=== PATIENT | male | born 1960 ===

== ENCOUNTER 2017-02-28 09:01 | Inpatient (IN) | payer OTHER ==
[2017-02-28] MEDS ORDERED: Sodium Chloride 0.9% 100 ML IV STA (09:52)
--- NOTE | 2017-02-28 09:55 | ED PDOC ---
HPI: General Adult Time Seen by Provider: 02/28/17 09:45 Chief Complaint (Nursing): Abdominal Pain Chief Complaint (Provider): im weak and dizzy History Per: Patient History/Exam Limitations: no limitations Onset/Duration Of Symptoms: Days (5), Gradual Current Symptoms Are (Timing): Still Present Severity: Moderate Recently: Treated By A Physician Additional Complaint(s): 56yo male presents c/o feeling weak and generalized feeling of dizziness. Denies abdominal pain, rectal bleeding, diarrhea or vomiting. He notes abdominal distension, worsening, and bilateral lower extremity weakness. Past Medical History Reviewed: Historical Data, Nursing Documentation, Vital Signs Vital Signs: Last Vital Signs Temp 99.6 F 03/06/17 07:54 Pulse 99 H 03/06/17 07:54 Resp 18 03/06/17 07:54 BP 126/78 03/06/17 07:54 Pulse Ox 99 03/06/17 07:54 - Medical History PMH: Anemia, HTN Denies: Arthritis, Depression (denies), Chronic Kidney Disease Other PMH: cirrhosis - Surgical History Surgical History: Cholecystectomy - Family History Family History: States: Unknown Family Hx - Social History Current smoker - smoking cessation education provided: No - Home Medications Home Medications: Ambulatory Orders Medication Instructions Recorded Ferrous Sulfate [Feosol] 325 mg PO BID #60 tab 03/06/17 Furosemide [Lasix] 40 mg PO DAILY #14 tablet 03/06/17 Pantoprazole [Protonix EC Tab] 40 mg PO DAILY #30 ect 03/06/17 Spironolactone [Aldactone] 50 mg PO BID #30 tab 03/06/17 - Allergies Allergies/Adverse Reactions: Allergies Allergy/AdvReac Type Severity Reaction Status Date / Time No Known Allergies Allergy Verified 01/13/17 18:59 Review of Systems ROS Statement: Except As Marked, All Systems Reviewed And Found Negative Constitutional: Positive for: Weakness, Malaise. Negative for: Fever, Chills Cardiovascular: Negative for: Chest Pain, Palpitations Respiratory: Negative for: Cough, Shortness of Breath Gastrointestinal: Positive for: Abdominal Pain. Negative for: Nausea, Vomiting , Diarrhea, Hematochezia, Hematemesis, Rectal Pain Genitourinary Male: Negative for: Dysuria, Frequency Musculoskeletal: Positive for: Leg Pain. Negative for: Neck Pain, Shoulder Pain , Foot Pain Skin: Negative for: Rash, Lesions, Jaundice Neurological: Positive for: Weakness, Dizziness. Negative for: Confusion, Seizures, Headache Psych: Positive for: Anxiety. Negative for: Depression Physical Exam - Reviewed Nursing Documentation Reviewed: Yes Vital Signs Reviewed: Yes - Physical Exam Appears: Positive for: Non-toxic (chronically ill appearing) Head Exam: Positive for: ATRAUMATIC, NORMAL INSPECTION, NORMOCEPHALIC Skin: Positive for: Normal Color, Warm, DRY Eye Exam: Positive for: EOMI, Normal appearance, PERRL ENT: Positive for: Normal ENT Inspection Neck: Positive for: Normal, Painless ROM Cardiovascular/Chest: Positive for: Regular Rate, Rhythm Respiratory: Positive for: CNT, Normal Breath Sounds Gastrointestinal/Abdominal: Positive for: Soft, Tenderness (mild), Distended, Asicites Back: Positive for: Normal Inspection Extremity: Positive for: Normal ROM, Swelling (b/l LE) Neurologic/Psych: Positive for: Alert, Oriented. Negative for: Motor/Sensory Deficits - Laboratory Results Result Diagrams: 03/06/17 05:30 03/06/17 05:30 - ECG O2 Sat by Pulse Oximetry: 100 Medical Decision Making Medical Decision Making: labs reviewed reveal anemia Hgb 7.7 Will likely need paracentesis for significant ascites/ Admitted medicine. Disposition - Clinical Impression Clinical Impression: Alcoholic cirrhosis of liver with ascites, Anemia - Patient ED Disposition Is Patient to be Admitted: Yes Counseled Patient/Family Regarding: Studies Performed, Diagnosis, Need For Followup - Disposition Disposition Time: 13:00 Condition: FAIR - Pt Status Changed To: Hospital Disposition Of: Observation - POA Present On Arrival: None
[2017-02-28 10:34] LABS: BASO # 0.1 K/uL (0.0-0.2); BASO % 0.4 % (0.0-2.0); EOS % 0.3 % (0.0-4.0); LYMPH # 0.7 K/uL (1.0-4.3); LYMPH % 5.3 % (20.0-40.0); MEAN CELL VOLUME 70.9 fl (80.0-94.0); MEAN CORPUSCULAR HEMOGLOBIN 20.8 pg (27.0-31.0); MEAN CORPUSCULAR HGB CONC 29.3 g/dL (33.0-37.0); MONO # 1.4 K/uL (0.0-0.8); MONO % 10.2 % (0.0-10.0); NEUT # 11.8 K/uL (1.8-7.0); NEUT % 83.8 % (50.0-75.0); NRBC % 0.2 % (0.0-0.0); PLATELET COUNT 442 K/uL (130-400); RED CELL DISTRIBUTION WIDTH 23.2 % (11.5-14.5); WHITE BLOOD COUNT 14.1 K/uL (4.8-10.8)
[2017-02-28 10:36] LABS: RBC URINE 1 /hpf (0-3); URINE BILIRUBIN NEGATIVE (NEGATIVE); URINE BLOOD NEGATIVE (NEGATIVE); URINE COLOR YELLOW (YELLOW); URINE GLUCOSE (UA) NEG (Normal); URINE KETONE NEGATIVE (NEGATIVE); URINE LEUKOCYTE ESTERASE NEG Leu/uL (Negative); URINE PROTEIN NEGATIVE (NEGATIVE); URINE UROBILINOGEN 0.2-1.0 mg/dL (0.2-1.0); WBC URINE 1 /hpf (0-5)
[2017-02-28 10:47] LABS: PARTIAL THROMBOPLASTIN TIME 27.3 SECONDS (23.3-32.5)
[2017-02-28 10:49] LABS: ALB/GLOB RATIO 0.7 (1.0-2.1); ALCOHOL SERUM < 10 mg/dl (0-10); ALKALINE PHOSPHATASE 132 U/L (38-126); ALT/SGPT 63 U/L (21-72); AST/SGOT 129 U/L (17-59); BILIRUBIN,TOTAL 1.4 mg/dl (0.2-1.3); BLOOD UREA NITROGEN 34 mg/dl (9-20); CALCIUM 8.3 mg/dL (8.4-10.2); CARBON DIOXIDE 20 mmol/L (22-30); CHLORIDE 95 mmol/L (98-107); GFR AFRICAN-AMERICAN > 60; GLUCOSE,RANDOM 161 mg/dL (75-110); POTASSIUM 4.2 MMOL/L (3.6-5.0); SODIUM 129 mmol/l (132-148); TOTAL PROTEIN 6.4 G/DL (6.3-8.2)
[2017-02-28 10:56] LABS: LIPASE 2250 U/L (23-300)
[2017-02-28 11:07] LABS: HEMATOCRIT 26.3 % (35.0-51.0)
[2017-02-28 11:13] LABS: NEUTROPHIL 86 % (42-75); TOTAL CELLS COUNTED 100
[2017-02-28 11:21] LABS: LARGE PLATELETS PRESENT
--- NOTE | 2017-02-28 14:24 | CARD ---
APPROVED REPORT EKG Measurement Heart [id number] <Conclusion> Normal sinus rhythm Prolonged QT Abnormal ECG
--- NOTE | 2017-02-28 17:30 | CP.PCM.CON ---
History of Present Illness - History of Present Illness History of Present Illness: 56 yo male with h/o heavy alcohol use admitted with abddominal swelling. admitted one month ago and then had minor acites Review of Systems - Constitutional Constitutional: absent: Chills - EENT Eyes: absent: Blurred Vision - Cardiovascular Cardiovascular: absent: Chest Pain - Respiratory Respiratory: absent: Cough - Gastrointestinal Gastrointestinal: As Per HPI Past Patient History - Infectious Disease Hx of Infectious Diseases: None - Past Medical History & Family History Past Medical History?: Yes - Past Social History Smoking Status: Former Smoker - CARDIAC Hx Cardiac Disorders: Yes - PULMONARY Hx Respiratory Disorders: No - NEUROLOGICAL Hx Neurological Disorder: No - HEENT Hx HEENT Problems: No - RENAL Hx Chronic Kidney Disease: No - ENDOCRINE/METABOLIC Hx Endocrine Disorders: Yes - HEMATOLOGICAL/ONCOLOGICAL Hx Anemia: Yes - INTEGUMENTARY Hx Dermatological Problems: No - MUSCULOSKELETAL/RHEUMATOLOGICAL Hx Arthritis: No - GASTROINTESTINAL Hx Gastrointestinal Disorders: No - GENITOURINARY/GYNECOLOGICAL Hx Genitourinary Disorders: No - PSYCHIATRIC Hx Depression: No (denies) - SURGICAL HISTORY Hx Cholecystectomy: Yes - ANESTHESIA Hx Anesthesia: Yes Hx Anesthesia Reactions: No Meds Allergies/Adverse Reactions: Allergies Allergy/AdvReac Type Severity Reaction Status Date / Time No Known Allergies Allergy Verified 01/13/17 18:59 - Medications Medications: Current Medications Furosemide (Lasix) 40 mg IV DAILY [facility] Ceftriaxone Sodium 1 gm/ (Sodium Chloride) 100 mls @ 100 mls/hr IVPB DAILY [facility] Spironolactone (Aldactone) 50 mg PO BID [facility] Physical Exam - Head Exam Head Exam: NORMAL INSPECTION - Eye Exam Pupil Exam: PERRL - ENT Exam ENT Exam: Mucous Membranes Moist - Neck Exam Neck exam: Positive for: Normal Inspection - Respiratory Exam Respiratory Exam: NORMAL BREATHING PATTERN - Cardiovascular Exam Cardiovascular Exam: REGULAR RHYTHM, +S1, +S2 - GI/Abdominal Exam GI & Abdominal Exam: Firm, Normal Bowel Sounds Results - Vital Signs Recent Vital Signs: Last Vital Signs Temp 98.2 F 02/28/17 15:38 Pulse 89 02/28/17 16:23 Resp 20 02/28/17 16:23 BP 127/84 02/28/17 16:23 Pulse Ox 100 02/28/17 16:23 - Labs Result Diagrams: 02/28/17 10:15 02/28/17 10:15 Assessment & Plan (1) Cirrhosis Assessment and Plan: Severe ascites in patient known to be heavy alcohol user. Rocephin started for possible SBP. Should have diagnostic and therapeutic tap. Pantoprazole daily. Diuretics started. Upper endoscopy Friday Status: Acute
[2017-03-01 12:08] LABS: HEMATOCRIT 30.9 % (35.0-51.0); MEAN CELL VOLUME 71.8 fl (80.0-94.0); MEAN CORPUSCULAR HEMOGLOBIN 22.4 pg (27.0-31.0); MEAN CORPUSCULAR HGB CONC 31.2 g/dL (33.0-37.0); RED CELL DISTRIBUTION WIDTH 22.8 % (11.5-14.5); WHITE BLOOD COUNT 15.1 K/uL (4.8-10.8)
--- NOTE | 2017-03-01 19:36 | CP.PCM.HP ---
History of Present Illness - History of Present Illness History of Present Illness: 56 yold male CC increased weakness , dizziness, abdominal distention , worsening leg edema and L/E weakness. Hx of Liver Cirrhosis 2nd to ETOH abuse, denies hematemesis, melena , abdominal pain , N/V Present on Admission - Present on Admission Any Indicators Present on Admission: No Review of Systems - Constitutional Constitutional: Weakness - EENT Eyes: Other (negt) Ears: Other (neg) Nose/Mouth/Throat: Other (neg) - Cardiovascular Cardiovascular: Other (neg) - Respiratory Respiratory: Other (neg) - Gastrointestinal Additional comments: abdominal distention - Genitourinary Genitourinary: Other (neg) - Musculoskeletal Musculoskeletal: Other (neg) - Integumentary Integumentary: Other (neg) - Neurological Neurological: Dizziness, Weakness - Psychiatric Psychiatric: Anxiety - Endocrine Endocrine: Other (neg) - Hematologic/Lymphatic Hematologic: Other (neg) Past Patient History - Infectious Disease Hx of Infectious Diseases: None - Past Medical History & Family History Past Medical History?: Yes - Past Social History Smoking Status: Former Smoker Alcohol: Other (Hx ETOH abuse) Drugs: Denies - CARDIAC Hx Cardiac Disorders: Yes Hx Hypertension: Yes - PULMONARY Hx Respiratory Disorders: No - NEUROLOGICAL Hx Neurological Disorder: No - HEENT Hx HEENT Problems: No - RENAL Hx Chronic Kidney Disease: No - ENDOCRINE/METABOLIC Hx Endocrine Disorders: Yes - HEMATOLOGICAL/ONCOLOGICAL Hx Anemia: Yes Hx Cirrhosis: Yes - INTEGUMENTARY Hx Dermatological Problems: No - MUSCULOSKELETAL/RHEUMATOLOGICAL Hx Arthritis: No Hx Falls: No - GASTROINTESTINAL Hx Gastrointestinal Disorders: No - GENITOURINARY/GYNECOLOGICAL Hx Genitourinary Disorders: No - PSYCHIATRIC Hx Depression: No (denies) Hx Substance Use: No - SURGICAL HISTORY Hx Cholecystectomy: Yes - ANESTHESIA Hx Anesthesia: Yes Hx Anesthesia Reactions: No Meds Allergies/Adverse Reactions: Allergies Allergy/AdvReac Type Severity Reaction Status Date / Time No Known Allergies Allergy Verified 01/13/17 18:59 Physical Exam - Constitutional Appears: Chronically Ill - Head Exam Head Exam: NORMAL INSPECTION - Eye Exam Eye Exam: PERRL - ENT Exam ENT Exam: Normal Exam - Neck Exam Neck exam: Positive for: Normal Inspection - Respiratory Exam Respiratory Exam: Decreased Breath Sounds (at bases) - Cardiovascular Exam Cardiovascular Exam: REGULAR RHYTHM - GI/Abdominal Exam GI & Abdominal Exam: Distended (ascites) - Extremities Exam Extremities exam: Positive for: pedal edema (legs , pedal edema) - Back Exam Back exam: NORMAL INSPECTION - Neurological Exam Neurological exam: Alert, Oriented x3 Additional comments: generalized weakness , no focal motor/sensory deficit - Psychiatric Exam Psychiatric exam: Anxious - Skin Skin Exam: Normal Color, Warm Results - Vital Signs Recent Vital Signs: Last Vital Signs Temp 98 F 03/01/17 17:16 Pulse 114 H 03/01/17 17:16 Resp 20 03/01/17 17:16 BP 138/85 03/01/17 17:16 Pulse Ox 99 03/01/17 17:16 - Labs Result Diagrams: 03/02/17 06:00 03/02/17 06:00 Labs: Laboratory Results - last 24 hr 03/01/17 12:00 WBC 15.1 H RBC 4.30 L Hgb 9.6 L Hct 30.9 L MCV 71.8 L MCH 22.4 L MCHC 31.2 L RDW 22.8 H Plt Count 395 Assessment & Plan (1) Alcoholic cirrhosis of liver with ascites Status: Acute (2) Anemia Status: Acute (3) Hyponatremia Status: Acute - Assessment and Plan (Free Text) Plan: Hgb 9.6 after 2 U PRBC transfusion , continue Rocephin Lasis, Aldactone , Protonix , f/i Hgb , Na , GI consult appreciated , f/u IR consult for Paracentesis
[2017-03-02 08:00] LABS: ALB/GLOB RATIO 0.7 (1.0-2.1); ALKALINE PHOSPHATASE 130 U/L (38-126); ALT/SGPT 57 U/L (21-72); AST/SGOT 109 U/L (17-59); BILIRUBIN,TOTAL 1.5 mg/dl (0.2-1.3); BLOOD UREA NITROGEN 21 mg/dl (9-20); CALCIUM 8.1 mg/dL (8.4-10.2); CARBON DIOXIDE 22 mmol/L (22-30); CHLORIDE 98 mmol/L (98-107); GFR AFRICAN-AMERICAN > 60; GLUCOSE,RANDOM 121 mg/dL (75-110); POTASSIUM 3.8 MMOL/L (3.6-5.0); SODIUM 134 mmol/l (132-148); TOTAL PROTEIN 6.4 G/DL (6.3-8.2)
[2017-03-02 08:01] LABS: HEMATOCRIT 33.2 % (35.0-51.0); MEAN CELL VOLUME 74.5 fl (80.0-94.0); MEAN CORPUSCULAR HEMOGLOBIN 21.6 pg (27.0-31.0); MEAN CORPUSCULAR HGB CONC 28.9 g/dL (33.0-37.0); WHITE BLOOD COUNT 14.9 K/uL (4.8-10.8)
[2017-03-02 08:15] LABS: LIPASE 2533 U/L (23-300)
--- NOTE | 2017-03-02 15:12 | CP.PCM.PN ---
Subjective - Date & Time of Evaluation Date of Evaluation: 03/02/17 Time of Evaluation: 14:50 - Subjective Subjective: F/U Liver Cirrhosis. Pt c/o of generalized weakness, no c/o of dizziness, no abdominal pain. Objective - Vital Signs/Intake and Output Vital Signs (last 24 hours): Temp Pulse Resp BP Pulse Ox 97.8 F 110 H 20 154/95 H 100 03/02/17 07:50 03/02/17 07:50 03/02/17 07:50 03/02/17 09:28 03/02/17 07:50 - Medications Medications: Current Medications Furosemide (Lasix) 40 mg IV DAILY [facility] Last Admin: 03/02/17 09:28 Dose: 40 mg Ceftriaxone Sodium 1 gm/ (Sodium Chloride) 100 mls @ 100 mls/hr IVPB DAILY [facility] Last Admin: 03/02/17 12:59 Dose: 100 mls/hr Pantoprazole Sodium (Protonix Inj) 40 mg IVP DAILY [facility] Last Admin: 03/02/17 09:28 Dose: 40 mg Spironolactone (Aldactone) 50 mg PO BID [facility] Last Admin: 03/02/17 09:28 Dose: 50 mg - Labs Labs: 03/02/17 06:00 03/02/17 06:00 PT 12.7 SECONDS (9.6-11.2) H 03/02/17 06:00 INR 1.22 (0.92-1.08) H 03/02/17 06:00 APTT 27.3 SECONDS (23.3-32.5) 02/28/17 10:15 - Constitutional Appears: No Acute Distress - Head Exam Head Exam: NORMAL INSPECTION - Eye Exam Eye Exam: PERRL - ENT Exam ENT Exam: Normal Exam - Neck Exam Neck Exam: Normal Inspection - Respiratory Exam Respiratory Exam: Decreased Breath Sounds - Cardiovascular Exam Cardiovascular Exam: REGULAR RHYTHM - GI/Abdominal Exam GI & Abdominal Exam: Distended (ascites) - Extremities Exam Additional comments: B/L L/E edema, 4+ pitting - Back Exam Back Exam: NORMAL INSPECTION - Neurological Exam Neurological Exam: Alert, Oriented x3 Additional comments: Generalized weakness, no focal motor/sensory deficit. - Psychiatric Exam Psychiatric exam: Anxious - Skin Skin Exam: Normal Color, Warm Assessment and Plan (1) Alcoholic cirrhosis of liver with ascites Status: Acute (2) Anemia Status: Acute (3) Hyponatremia Status: Acute - Assessment and Plan (Free Text) Plan: Continue Aldactone, Ceftriaxone, Lasix and rest of Tx, f/u IR for Paracentesis tomorrow.
[2017-03-03] MEDS ORDERED: Pneumococcal 23-Valent Vaccine IM ONE (11:18)
[2017-03-03 12:23] LABS: BODY FLUID TYPE PERITONEAL/ASCITES
[2017-03-03 13:10] LABS: LDH,BODY FLUID 270 IU (NONE ESTABLISHED)
[2017-03-03 14:45] LABS: BF GROSS APPEARANCE CLEAR (CLEAR)
[2017-03-03 16:09] LABS: HEMATOCRIT 31.2 % (35.0-51.0); MEAN CELL VOLUME 73.7 fl (80.0-94.0); MEAN CORPUSCULAR HEMOGLOBIN 21.8 pg (27.0-31.0); MEAN CORPUSCULAR HGB CONC 29.6 g/dL (33.0-37.0); RED CELL DISTRIBUTION WIDTH 22.8 % (11.5-14.5); WHITE BLOOD COUNT 14.3 K/uL (4.8-10.8)
[2017-03-03 16:27] LABS: ALB/GLOB RATIO 0.7 (1.0-2.1); ALKALINE PHOSPHATASE 154 U/L (38-126); ALT/SGPT 58 U/L (21-72); AMYLASE 585 U/L (30-110); AST/SGOT 121 U/L (17-59); BILIRUBIN,TOTAL 0.8 mg/dl (0.2-1.3); BLOOD UREA NITROGEN 18 mg/dl (9-20); CALCIUM 7.9 mg/dL (8.4-10.2); CARBON DIOXIDE 24 mmol/L (22-30); CHLORIDE 98 mmol/L (98-107); GFR AFRICAN-AMERICAN > 60; GLUCOSE,RANDOM 153 mg/dL (75-110); POTASSIUM 3.8 MMOL/L (3.6-5.0); SODIUM 134 mmol/l (132-148); TOTAL PROTEIN 6.2 G/DL (6.3-8.2)
[2017-03-03 16:35] LABS: LIPASE 3538 U/L (23-300)
--- NOTE | 2017-03-03 16:54 | CP.PCM.PN ---
Subjective - Date & Time of Evaluation Date of Evaluation: 03/03/17 Time of Evaluation: 13:20 - Subjective Subjective: F/U Liver Cirrhosis. Pt had Paracentesis done today, feels better with less pressure in abdomen. Objective - Vital Signs/Intake and Output Vital Signs (last 24 hours): Temp Pulse Resp BP Pulse Ox 99 F 109 H 20 125/83 97 03/03/17 12:06 03/03/17 12:06 03/03/17 12:06 03/03/17 12:06 03/03/17 12:06 - Medications Medications: Current Medications Furosemide (Lasix) 40 mg IV DAILY [facility] Last Admin: 03/03/17 09:04 Dose: 40 mg Ceftriaxone Sodium 1 gm/ (Sodium Chloride) 100 mls @ 100 mls/hr IVPB DAILY [facility] Last Admin: 03/03/17 09:05 Dose: 100 mls/hr Pantoprazole Sodium (Protonix Inj) 40 mg IVP DAILY [facility] Last Admin: 03/03/17 09:04 Dose: 40 mg Spironolactone (Aldactone) 50 mg PO BID [facility] Last Admin: 03/03/17 09:05 Dose: 50 mg - Labs Labs: 03/03/17 15:30 03/03/17 15:45 PT 12.7 SECONDS (9.6-11.2) H 03/02/17 06:00 INR 1.22 (0.92-1.08) H 03/02/17 06:00 APTT 27.3 SECONDS (23.3-32.5) 02/28/17 10:15 - Constitutional Appears: No Acute Distress - Head Exam Head Exam: NORMAL INSPECTION - Eye Exam Eye Exam: PERRL - ENT Exam ENT Exam: Normal Oropharynx - Neck Exam Neck Exam: Normal Inspection - Respiratory Exam Respiratory Exam: Decreased Breath Sounds - Cardiovascular Exam Cardiovascular Exam: REGULAR RHYTHM - GI/Abdominal Exam GI & Abdominal Exam: Distended (less), Normal Bowel Sounds Additional comments: Small dressing R side of abdomen - Extremities Exam Additional comments: Edema L/E 4+ pitting - Neurological Exam Neurological Exam: Alert, Oriented x3 Additional comments: Generalized weakness, no focal motor/sensory deficit. - Psychiatric Exam Psychiatric exam: Anxious - Skin Skin Exam: Warm Assessment and Plan (1) Alcoholic cirrhosis of liver with ascites Status: Acute (2) Anemia Status: Acute (3) Hyponatremia Status: Resolved - Assessment and Plan (Free Text) Plan: Continue Ceftriaxone, Lasix, Aldactone and rest of Tx.
--- NOTE | 2017-03-04 09:17 | PQF GENQUE ---
This form is a permanent part of the medical record 03/04/17 Dr. Qiana Phillip, Would you please clarify if there is an associated diagnosis or not to go along with the following lab findings: Amylase 585, Lipase 2250-> 3538. Admitted with alcoholic cirrhosis with ascites. Clarification of your documentation is requested to better reflect the severity of illness and intensity of treatment of your patient. PHYSICIAN'S RESPONSE Based on your medical judgment of the clinical indicators outlined above please clarify the following: [] Practitioner response [] If unable to determine, please check the box, sign and date. Present On Admission (POA) Indicator: [] Present at the time of admission [] Not present at the time of admission [] Clinically Undetermined In responding to this query, please exercise your independent professional judgment. The fact that a question is asked does not imply that any particular answer is desired or expected. Thank you for your clarification on this documentation. If you have any questions please call:[phone] * Thank you, Kelley Haynes RN CD[facility]
--- NOTE | 2017-03-04 09:27 | PQF ANEMIA ---
This form is a permanent part of the medical record 03/04/17 Dr. Qiana Phillip, Please clarify the type of anemia if known. Admitted with Alcoholic cirrhosis of the liver with ascites. H&H 7.7/26.3, MCV 70.9, MCH 20.8 and transfused 2 units of PRBC's Clarification of your documentation is requested to better reflect the severity of illness and intensity of treatment of your patient. Indicators present [x] Anemia [] H&H 7.7/26.3 [] Hypotension [] GI Bleed [x] Transfusion(s): PRBC [] Acute bleed other sites [] Tachycardia [] Surgical Procedure Blood Loss (expected not a complication) Other:[] Location in the medical record that reflects the above clinical findings: [x] H& P Treatment Provided: [x] Transfusion PRBC PHYSICIAN'S RESPONSE Based on your medical judgment of the clinical indicators outlined above, are you treating this patient for a known or suspected: [] Acute blood loss anemia [] Chronic blood loss anemia [] Acute on Chronic blood loss anemia [] Deficiency anemia please specify type [] Microcytic anemia [] Anemia due to chemotherapy or radiation therapy [] Anemia of Chronic Disease, please specify: [] [] Other, please indicate type of anemia []____ [] If Unable to Determine, please check the box, sign and date. Present On Admission (POA) Indicator: [] Present at the time of admission [] Not present at the time of admission [] Clinically Undetermined In responding to this query, please exercise your independent professional judgment. The fact that a question is asked does not imply that any particular answer is desired or expected. Thank you for your clarification on this documentation. If you have any questions please call:[phone] * Thank you, Kelley Haynes RN CD[facility]
[2017-03-04] MEDS: Albumin Human 25% (12.5 gm/50 ml) IV SCH ×2 (11:02→17:14)
--- NOTE | 2017-03-04 12:42 | PCM.SURG1 ---
Surgeon's Initial Post Op Note - Surgeon's Notes Surgeon: Yohannes Production Clerk: None Type of Anesthesia: Local Pre-Operative Diagnosis: Ascites. Operative Findings: Ascites. Post-Operative Diagnosis: Ascites. Operation Performed: Paracentesis Specimen/Specimens Removed: Approx 9L of clear fluid aspirated. Estimated Blood Loss: EBL {In ML}: 1 Date of Surgery/Procedure: 03/03/17 Time of Surgery/Procedure: 11:40
--- NOTE | 2017-03-04 12:48 | US ---
Ultrasound guided paracentesis. Clinical History: Ascites with abdominal pain and distension. Technique: The relative risks and indications for the procedure were explained to the patient and informed written consent obtained. Sonography of the abdomen was performed in a supine position. This revealed a large amount of non-loculated ascites, greatest in the right lower quadrant. A puncture site was selected and the area was prepped and draped in the usual sterile fashion. 1% lidocaine was used to anesthetize the skin and soft tissues. A 5 Welsh paracentesis catheter was trocared into the right lower quadrant under real time ultrasound guidance. A permanent image was stored. Approximately 9000 cc of clear pale yellow colored fluid aspirated. Impression: Ultrasound-guided paracentesis in the right lower quadrant. Approximately 9000 cc of clear pale yellow colored fluid was aspirated.
--- NOTE | 2017-03-04 17:07 | CP.PCM.PN ---
Subjective - Date & Time of Evaluation Date of Evaluation: 03/04/17 Time of Evaluation: 10:00 - Subjective Subjective: F/U Liver Cirrhosis feels better after Paracentesis, complains of generalized weakness and leg edema Objective - Vital Signs/Intake and Output Vital Signs (last 24 hours): Temp Pulse Resp BP Pulse Ox 99.9 F H 70 20 97/62 L 98 03/04/17 08:36 03/04/17 08:36 03/04/17 08:36 03/04/17 11:04 03/04/17 08:36 - Medications Medications: Current Medications Acetaminophen (Tylenol 325mg Tab) 650 mg PO Q4 PRN PRN Reason: Pain, moderate (4-7) Last Admin: 03/04/17 11:03 Dose: 650 mg Albumin Human (Albumin Human 25% (12.5 Gm/50 Ml)) 12.5 gm IV Q8 [facility] Last Admin: 03/04/17 11:02 Dose: 12.5 gm Furosemide (Lasix) 40 mg IV DAILY [facility] Last Admin: 03/04/17 11:04 Dose: Not Given Ceftriaxone Sodium 1 gm/ (Sodium Chloride) 100 mls @ 100 mls/hr IVPB DAILY [facility] Last Admin: 03/04/17 12:08 Dose: 100 mls/hr Pantoprazole Sodium (Protonix Inj) 40 mg IVP DAILY [facility] Last Admin: 03/04/17 11:03 Dose: 40 mg Spironolactone (Aldactone) 50 mg PO BID [facility] Last Admin: 03/04/17 11:04 Dose: Not Given - Labs Labs: 03/03/17 15:30 03/03/17 15:45 PT 12.7 SECONDS (9.6-11.2) H 03/02/17 06:00 INR 1.22 (0.92-1.08) H 03/02/17 06:00 APTT 27.3 SECONDS (23.3-32.5) 02/28/17 10:15 - Constitutional Appears: No Acute Distress - Head Exam Head Exam: NORMAL INSPECTION - Eye Exam Eye Exam: PERRL - ENT Exam ENT Exam: Normal Exam - Neck Exam Neck Exam: Normal Inspection - Respiratory Exam Respiratory Exam: Decreased Breath Sounds - Cardiovascular Exam Cardiovascular Exam: REGULAR RHYTHM - GI/Abdominal Exam GI & Abdominal Exam: Distended (less distended , decreased ascites), Normal Bowel Sounds Additional comments: Small dressing R side of abdomen. - Extremities Exam Additional comments: Edema L/E 4+ pitting - Neurological Exam Neurological Exam: Alert, Oriented x3 Additional comments: Generalized weakness, no focal motor/sensory deficit. - Psychiatric Exam Psychiatric exam: Anxious - Skin Skin Exam: Warm Assessment and Plan (1) Alcoholic cirrhosis of liver with ascites Status: Acute (2) Anemia Status: Acute (3) Hyponatremia Status: Resolved - Assessment and Plan (Free Text) Plan: continue Lasix , Spirolactone, Albumin,Protonix , PT eval
[2017-03-05] MEDS: Albumin Human 25% (12.5 gm/50 ml) IV SCH ×2 (00:42→09:00)
[2017-03-05 08:18] LABS: HEMATOCRIT 30.6 % (35.0-51.0); MEAN CELL VOLUME 73.8 fl (80.0-94.0); MEAN CORPUSCULAR HEMOGLOBIN 22.1 pg (27.0-31.0); RED CELL DISTRIBUTION WIDTH 23.3 % (11.5-14.5); WHITE BLOOD COUNT 11.9 K/uL (4.8-10.8)
[2017-03-05 08:22] LABS: AMYLASE 580 U/L (30-110); BLOOD UREA NITROGEN 16 mg/dl (9-20); CARBON DIOXIDE 22 mmol/L (22-30); CHLORIDE 100 mmol/L (98-107); GFR AFRICAN-AMERICAN > 60; GLUCOSE,RANDOM 111 mg/dL (75-110); POTASSIUM 4.2 MMOL/L (3.6-5.0); SODIUM 134 mmol/l (132-148)
[2017-03-05 08:58] LABS: LIPASE 2939 U/L (23-300)
--- NOTE | 2017-03-05 14:19 | CP.PCM.PN ---
Subjective - Date & Time of Evaluation Date of Evaluation: 03/05/17 Time of Evaluation: 09:40 - Subjective Subjective: F/U Liver Cirrhosis. Pt feeling better, less abdominal discomfort, c/o of leg edema. Objective - Vital Signs/Intake and Output Vital Signs (last 24 hours): Temp Pulse Resp BP Pulse Ox 98.4 F 90 20 130/87 100 03/05/17 08:15 03/05/17 08:15 03/05/17 08:15 03/05/17 09:33 03/05/17 08:15 - Medications Medications: Current Medications Acetaminophen (Tylenol 325mg Tab) 650 mg PO Q4 PRN PRN Reason: Pain, moderate (4-7) Last Admin: 03/04/17 11:03 Dose: 650 mg Ferrous Sulfate (Feosol) 325 mg PO BID [facility] Furosemide (Lasix) 40 mg IV DAILY [facility] Last Admin: 03/05/17 09:33 Dose: 40 mg Ceftriaxone Sodium 1 gm/ (Sodium Chloride) 100 mls @ 100 mls/hr IVPB DAILY [facility] Last Admin: 03/05/17 09:41 Dose: 100 mls/hr Pantoprazole Sodium (Protonix Inj) 40 mg IVP DAILY [facility] Last Admin: 03/05/17 09:41 Dose: 40 mg Spironolactone (Aldactone) 50 mg PO BID [facility] Last Admin: 03/05/17 09:45 Dose: 50 mg - Labs Labs: 03/05/17 05:50 03/05/17 05:50 PT 12.7 SECONDS (9.6-11.2) H 03/02/17 06:00 INR 1.22 (0.92-1.08) H 03/02/17 06:00 APTT 27.3 SECONDS (23.3-32.5) 02/28/17 10:15 - Constitutional Appears: No Acute Distress - Head Exam Head Exam: NORMAL INSPECTION - Eye Exam Eye Exam: PERRL - ENT Exam ENT Exam: Normal Oropharynx - Neck Exam Neck Exam: Normal Inspection - Respiratory Exam Respiratory Exam: Decreased Breath Sounds (at bases) - Cardiovascular Exam Cardiovascular Exam: REGULAR RHYTHM - GI/Abdominal Exam GI & Abdominal Exam: Distended (less diatended with ascites.), Soft, Hypoactive Bowel Sounds - Extremities Exam Additional comments: Edema L/E 4+ pitting - Neurological Exam Neurological Exam: Alert, Oriented x3 Additional comments: Generalized weakness, no focal motor/sensory deficit. - Psychiatric Exam Psychiatric exam: Anxious - Skin Skin Exam: Warm Assessment and Plan (1) Alcoholic cirrhosis of liver with ascites Status: Acute (2) Anemia Status: Acute (3) Hyponatremia Status: Resolved - Assessment and Plan (Free Text) Plan: Pt D/C by PT, able to ambulate independently, SS working for discharge planing.
[2017-03-05 16:30] LABS: IRON 21 ug/dL (49-181)
[2017-03-06 07:39] LABS: HEMATOCRIT 30.7 % (35.0-51.0); MEAN CORPUSCULAR HEMOGLOBIN 21.9 pg (27.0-31.0); MEAN CORPUSCULAR HGB CONC 29.5 g/dL (33.0-37.0); RED CELL DISTRIBUTION WIDTH 23.1 % (11.5-14.5); WHITE BLOOD COUNT 11.3 K/uL (4.8-10.8)
[2017-03-06 07:48] LABS: AMYLASE 542 U/L (30-110); BLOOD UREA NITROGEN 13 mg/dl (9-20); CALCIUM 8.3 mg/dL (8.4-10.2); CARBON DIOXIDE 23 mmol/L (22-30); CHLORIDE 99 mmol/L (98-107); GFR AFRICAN-AMERICAN > 60; GLUCOSE,RANDOM 119 mg/dL (75-110); POTASSIUM 3.9 MMOL/L (3.6-5.0); SODIUM 135 mmol/l (132-148)
[2017-03-06 07:55] VITALS: BP 126/78; PULSE 99; RESP 18; TEMP 99.6
[2017-03-06 07:57] LABS: LIPASE 2560 U/L (23-300)
[2017-03-06] MEDS ORDERED: Pantoprazole 40 mg EC Tab PO SCH (09:00)
--- NOTE | 2017-03-06 14:42 | CP.PCM.PN ---
Subjective - Date & Time of Evaluation Date of Evaluation: 03/06/17 Time of Evaluation: 12:00 - Subjective Subjective: F/U Liver Cirrhosis. Pt with no specific c/o, generalized weakness improved. Objective - Vital Signs/Intake and Output Vital Signs (last 24 hours): Temp Pulse Resp BP Pulse Ox 99.6 F 99 H 18 126/78 99 03/06/17 07:54 03/06/17 07:54 03/06/17 07:54 03/06/17 07:54 03/06/17 07:54 - Medications Medications: Current Medications Acetaminophen (Tylenol 325mg Tab) 650 mg PO Q4 PRN PRN Reason: Pain, moderate (4-7) Last Admin: 03/04/17 11:03 Dose: 650 mg Ferrous Sulfate (Feosol) 325 mg PO BID [facility] Last Admin: 03/06/17 09:34 Dose: 325 mg Ceftriaxone Sodium 1 gm/ (Sodium Chloride) 100 mls @ 100 mls/hr IVPB DAILY [facility] Last Admin: 03/06/17 09:35 Dose: 100 mls/hr Pantoprazole Sodium (Protonix Ec Tab) 40 mg PO DAILY [facility] Last Admin: 03/06/17 09:34 Dose: 40 mg Spironolactone (Aldactone) 50 mg PO BID [facility] Last Admin: 03/06/17 09:34 Dose: 50 mg - Labs Labs: 03/06/17 05:30 03/06/17 05:30 PT 12.7 SECONDS (9.6-11.2) H 03/02/17 06:00 INR 1.22 (0.92-1.08) H 03/02/17 06:00 APTT 27.3 SECONDS (23.3-32.5) 02/28/17 10:15 - Constitutional Appears: No Acute Distress - Head Exam Head Exam: NORMAL INSPECTION - Eye Exam Eye Exam: PERRL - ENT Exam ENT Exam: Normal Exam - Neck Exam Neck Exam: Normal Inspection - Respiratory Exam Respiratory Exam: Decreased Breath Sounds - Cardiovascular Exam Cardiovascular Exam: REGULAR RHYTHM - GI/Abdominal Exam GI & Abdominal Exam: Distended (mild with ascites.), Soft, Normal Bowel Sounds - Extremities Exam Additional comments: Legs edema 4+ - Neurological Exam Neurological Exam: Alert, Oriented x3 Additional comments: Less generalized weakness, no focal motor/sensory deficit. - Psychiatric Exam Psychiatric exam: Anxious - Skin Skin Exam: Warm Assessment and Plan (1) Anemia Status: Chronic (2) Alcoholic cirrhosis of liver with ascites Status: Chronic (3) Hyponatremia Status: Resolved - Assessment and Plan (Free Text) Plan: Pt improved and stable to be discharged, see instruction medication sheet, f/u with PMD and f/u with GI as out Pt.
[2017-03-08 13:52] VITALS: O2SAT 100
== END 2017-03-06 16:00 | disposition home or self-care (01) | DRG 200 ==
LOC: H.ER 09:01 → H.ERHOLD 13:47 → H.MEDSURG1 17:00
PROVIDERS: ADMIT Internal Medicine Pulmonary Disease; ATTEND Internal Medicine Pulmonary Disease
PROC: 30233N1 Transfusion of Nonautologous Red Blood Cells into Peripheral Vein, Percutaneous Approach (ICD-10-PCS; 2017-02-28)
PROC: 0W9G3ZX Drainage of Peritoneal Cavity, Percutaneous Approach, Diagnostic (ICD-10-PCS; principal; 2017-03-01)
DX: K70.31 Alcoholic cirrhosis of liver with ascites (principal); K85.90 Acute pancreatitis without necrosis or infection, unspecified; E87.1 Hypo-osmolality and hyponatremia; D50.0 Iron deficiency anemia secondary to blood loss (chronic); F10.10 Alcohol abuse, uncomplicated; Z87.891 Personal history of nicotine dependence

== ENCOUNTER 2017-03-24 17:01 | Inpatient (IN) | payer OTHER ==
--- NOTE | 2017-03-24 18:53 | ED PDOC ---
HPI: General Adult Time Seen by Provider: 03/24/17 18:49 Chief Complaint (Nursing): Abdominal Pain Chief Complaint (Provider): abdominal pain History Per: Patient History/Exam Limitations: no limitations Additional Complaint(s): 56yo male complaining of abdominal pain. Patient was seen by PMD Dr. Erma Willingham today and was sent here for paracentesis. No fever. Last paracentesis was 2 months ago. Past Medical History Reviewed: Historical Data, Nursing Documentation, Vital Signs Vital Signs: Last Vital Signs Temp 99 F 03/26/17 07:35 Pulse 109 H 03/26/17 07:35 Resp 20 03/26/17 07:35 BP 131/86 03/26/17 10:59 Pulse Ox 100 03/26/17 07:35 - Medical History PMH: Anemia, HTN Denies: Arthritis, Depression (denies), Chronic Kidney Disease - Surgical History Surgical History: Cholecystectomy - Family History Family History: States: Unknown Family Hx - Home Medications Home Medications: Ambulatory Orders Medication Instructions Recorded Ferrous Sulfate [Feosol] 325 mg PO BID #60 tab 03/06/17 Furosemide [Lasix] 40 mg PO DAILY #14 tablet 03/06/17 Pantoprazole [Protonix EC Tab] 40 mg PO DAILY #30 ect 03/06/17 Spironolactone [Aldactone] 50 mg PO BID #30 tab 03/06/17 - Allergies Allergies/Adverse Reactions: Allergies Allergy/AdvReac Type Severity Reaction Status Date / Time No Known Allergies Allergy Verified 03/24/17 17:37 Review of Systems ROS Statement: Except As Marked, All Systems Reviewed And Found Negative Constitutional: Negative for: Fever Gastrointestinal: Positive for: Abdominal Pain. Negative for: Vomiting, Diarrhea Physical Exam - Reviewed Nursing Documentation Reviewed: Yes Vital Signs Reviewed: Yes - Physical Exam Appears: Positive for: Well (thin ), Non-toxic, No Acute Distress Head Exam: Positive for: ATRAUMATIC, NORMAL INSPECTION, NORMOCEPHALIC Skin: Positive for: Jaundice Eye Exam: Positive for: EOMI, PERRL Cardiovascular/Chest: Positive for: Regular Rate, Rhythm Respiratory: Positive for: Normal Breath Sounds. Negative for: Rales, Rhonchi Gastrointestinal/Abdominal: Positive for: Other (abdomen tense and distended). Negative for: Tenderness Extremity: Positive for: Normal ROM - Laboratory Results Result Diagrams: 03/26/17 06:00 03/26/17 06:00 - ECG O2 Sat by Pulse Oximetry: 100 (RA) Pulse Ox Interpretation: Normal Medical Decision Making Medical Decision Makin EKG, Labs, Percecet ordered. Will discuss with PMD. [address] Amadeo Solis who will see the patient in the office tomorrow morning. Disposition - Clinical Impression Clinical Impression: Ascites of liver, Cirrhosis - Patient ED Disposition Is Patient to be Admitted: Yes - Disposition Disposition Time: 21:54 Condition: STABLE - Pt Status Changed To: Hospital Disposition Of: Observation - POA Present On Arrival: None Additional Comments - Additional Comments Additional Comments: Scribe Attestation: Documented by Alonso Goldberg acting as a scribe for Maricarmen Armstrong MD. Scribe Attestation: All medical record entries made by the Scribe were at my direction and personally dictated by me. I have reviewed the chart and agree that the record accurately reflects my personal performance of the history, physical exam, medical decision making, and the department course for this patient. I have also personally directed, reviewed, and agree with the discharge instructions and disposition.
[2017-03-24] MEDS ORDERED: Oxycodone/Acetaminophen 5/325 mg Tab PO STA (19:04)
[2017-03-24] MEDS ORDERED: Oxycodone/Acetaminophen 5/325 mg Tab ONE (19:21)
[2017-03-24 19:52] LABS: BASO # 0.1 K/uL (0.0-0.2); BASO % 0.9 % (0.0-2.0); EOS % 0.4 % (0.0-4.0); HEMATOCRIT 27.5 % (35.0-51.0); LYMPH # 1.5 K/uL (1.0-4.3); LYMPH % 12.8 % (20.0-40.0); MEAN CELL VOLUME 75.2 fl (80.0-94.0); MEAN CORPUSCULAR HEMOGLOBIN 23.3 pg (27.0-31.0); MEAN CORPUSCULAR HGB CONC 30.9 g/dL (33.0-37.0); MEAN PLATELET VOLUME 8.8 fl (7.2-11.7); MONO # 1.4 K/uL (0.0-0.8); MONO % 12.1 % (0.0-10.0); NEUT # 8.4 K/uL (1.8-7.0); NEUT % 73.8 % (50.0-75.0); RED CELL DISTRIBUTION WIDTH 24.9 % (11.5-14.5); WHITE BLOOD COUNT 11.4 K/uL (4.8-10.8)
[2017-03-24 20:08] LABS: ALB/GLOB RATIO 0.6 (1.0-2.1); ALKALINE PHOSPHATASE 202 U/L (38-126); ALT/SGPT 40 U/L (21-72); AST/SGOT 89 U/L (17-59); BILIRUBIN,TOTAL 0.6 mg/dl (0.2-1.3); BLOOD UREA NITROGEN 11 mg/dl (9-20); CALCIUM 8.8 mg/dL (8.4-10.2); CARBON DIOXIDE 20 mmol/L (22-30); CHLORIDE 104 mmol/L (98-107); GFR AFRICAN-AMERICAN > 60; GLUCOSE,RANDOM 161 mg/dL (75-110); LIPASE 1676 U/L (23-300); POTASSIUM 4.4 MMOL/L (3.6-5.0); SODIUM 138 mmol/l (132-148); TOTAL PROTEIN 7.4 G/DL (6.3-8.2)
[2017-03-24 20:09] LABS: PARTIAL THROMBOPLASTIN TIME 28.7 SECONDS (23.3-32.5)
[2017-03-24 21:06] LABS: RBC URINE 3 /hpf (0-3); URINE BACTERIA RARE (<OCC); URINE BILIRUBIN NEGATIVE (NEGATIVE); URINE BLOOD NEGATIVE (NEGATIVE); URINE COLOR AMBER (YELLOW); URINE GLUCOSE (UA) NEG (Normal); URINE KETONE NEGATIVE (NEGATIVE); URINE LEUKOCYTE ESTERASE NEG Leu/uL (Negative); URINE PROTEIN NEGATIVE (NEGATIVE); WBC URINE 3 /hpf (0-5)
[2017-03-24] MEDS ORDERED: Sodium Chloride 0.9% 1,000 ML IV STA (21:56)
[2017-03-25 07:57] LABS: ALB/GLOB RATIO 0.6 (1.0-2.1); ALKALINE PHOSPHATASE 193 U/L (38-126); ALT/SGPT 36 U/L (21-72); AST/SGOT 85 U/L (17-59); BILIRUBIN,TOTAL 1.2 mg/dl (0.2-1.3); BLOOD UREA NITROGEN 11 mg/dl (9-20); CALCIUM 8.4 mg/dL (8.4-10.2); CARBON DIOXIDE 16 mmol/L (22-30); CHLORIDE 105 mmol/L (98-107); GFR AFRICAN-AMERICAN > 60; GLUCOSE,RANDOM 204 mg/dL (75-110); POTASSIUM 4.8 MMOL/L (3.6-5.0); SODIUM 136 mmol/l (132-148); TOTAL PROTEIN 7.4 G/DL (6.3-8.2)
[2017-03-25 08:17] LABS: BASO # 0.1 K/uL (0.0-0.2); BASO % 0.9 % (0.0-2.0); EOS # 0.1 K/uL (0.0-0.7); EOS % 0.8 % (0.0-4.0); HEMATOCRIT 29.7 % (35.0-51.0); LYMPH # 1.5 K/uL (1.0-4.3); LYMPH % 16.4 % (20.0-40.0); MEAN CORPUSCULAR HGB CONC 30.7 g/dL (33.0-37.0); MEAN PLATELET VOLUME 8.4 fl (7.2-11.7); MONO # 1.2 K/uL (0.0-0.8); NEUT # 6.3 K/uL (1.8-7.0); NEUT % 68.9 % (50.0-75.0); NRBC % 0.2 % (0.0-0.0); RED CELL DISTRIBUTION WIDTH 25.2 % (11.5-14.5); WHITE BLOOD COUNT 9.2 K/uL (4.8-10.8)
--- NOTE | 2017-03-25 08:24 | CARD ---
APPROVED REPORT EKG Measurement Heart [id number] <Conclusion> Sinus tachycardia Otherwise normal ECG
[2017-03-25] MEDS ORDERED: Oxycodone/Acetaminophen 5/325 mg Tab PO PRN (09:45)
[2017-03-25] MEDS ORDERED: Lidocaine 1% Inj (20ml) ONE (12:09)
[2017-03-25 13:16] LABS: BODY FLUID TYPE PERITONEAL/ASCITES
[2017-03-25 13:35] LABS: LDH,BODY FLUID 252 IU (NONE ESTABLISHED)
[2017-03-25 14:09] LABS: BF GROSS APPEARANCE CLEAR (CLEAR)
--- NOTE | 2017-03-25 14:57 | PCM.SURG1 ---
Surgeon's Initial Post Op Note - Surgeon's Notes Surgeon: Yohannes Gill Box Tender: None Type of Anesthesia: Local Pre-Operative Diagnosis: Ascites Operative Findings: Ascites Post-Operative Diagnosis: Ascites Operation Performed: Paracentesis Specimen/Specimens Removed: 8L of pale yellow clear fluid Estimated Blood Loss: EBL {In ML}: 1 Date of Surgery/Procedure: 03/25/17 Time of Surgery/Procedure: 12:20
--- NOTE | 2017-03-25 15:14 | US ---
Ultrasound guided paracentesis. Clinical History: Ascites with abdominal pain and distension. Technique: The relative risks and indications for the procedure were explained to the patient and informed written consent obtained. Sonography of the abdomen was performed in a supine position. This revealed a large amount of non-loculated ascites, greatest in the right lower quadrant. A puncture site was selected and the area was prepped and draped in the usual sterile fashion. 1% lidocaine was used to anesthetize the skin and soft tissues. A 5 [place] paracentesis catheter was trocared into the right lower quadrant under real time ultrasound guidance. A permanent image was stored. Approximately 1000 cc of pale yellow clear fluid aspirated. Impression: Ultrasound-guided paracentesis in the right lower quadrant. Approximately those cc of pale yellow clear colored fluid was aspirated.
[2017-03-25] MEDS: Albumin Human 25% (12.5 gm/50 ml) IV SCH ×4 (17:39→21:11)
--- NOTE | 2017-03-25 20:08 | CP.PCM.CON ---
History of Present Illness - History of Present Illness History of Present Illness: 56 yo male with h/o alcoholic cirrhosis and ascites admitted with progressive abdominal distention.Was hospitalized last month with similar presentation Review of Systems - Constitutional Constitutional: absent: Chills - EENT Eyes: absent: Blurred Vision Ears: absent: Decreased Hearing Nose/Mouth/Throat: absent: Epistaxis - Cardiovascular Cardiovascular: absent: Chest Pain - Respiratory Respiratory: absent: Cough Past Patient History - Infectious Disease Hx of Infectious Diseases: None - Past Medical History & Family History Past Medical History?: Yes - Past Social History Smoking Status: Heavy Smoker > 10 Cigarettes Daily - CARDIAC Hx Cardiac Disorders: Yes Hx Hypertension: Yes - PULMONARY Hx Respiratory Disorders: No - NEUROLOGICAL Hx Neurological Disorder: No - HEENT Hx HEENT Problems: Yes Other/Comment: Use eyeglasses - RENAL Hx Chronic Kidney Disease: No - ENDOCRINE/METABOLIC Hx Endocrine Disorders: Yes Hx Diabetes Mellitus Type 2: Yes - HEMATOLOGICAL/ONCOLOGICAL Hx Blood Disorders: Yes Hx Anemia: Yes - INTEGUMENTARY Hx Dermatological Problems: No - MUSCULOSKELETAL/RHEUMATOLOGICAL Hx Musculoskeletal Disorders: No Hx Falls: No - GASTROINTESTINAL Hx Gastrointestinal Disorders: No - GENITOURINARY/GYNECOLOGICAL Hx Genitourinary Disorders: No - PSYCHIATRIC Hx Psychophysiologic Disorder: No Hx Substance Use: No - SURGICAL HISTORY Hx Surgeries: Yes Hx Cholecystectomy: Yes - ANESTHESIA Hx Anesthesia: Yes Hx Anesthesia Reactions: No Hx Malignant Hyperthermia: No Has any member of the family had a problem w/ anesthesia?: No Meds Allergies/Adverse Reactions: Allergies Allergy/AdvReac Type Severity Reaction Status Date / Time No Known Allergies Allergy Verified 03/24/17 17:37 - Medications Medications: Current Medications Ferrous Sulfate (Feosol) 325 mg PO BID [facility] Last Admin: 03/25/17 17:58 Dose: 325 mg Furosemide (Lasix) 40 mg IVP DAILY [facility] Last Admin: 03/25/17 08:20 Dose: 40 mg Oxycodone/Acetaminophen (Percocet 5/325 Mg Tab) 1 tab PO Q8 PRN PRN Reason: Pain, moderate (4-7) Stop: 03/28/17 09:46 Last Admin: 03/25/17 10:52 Dose: 1 tab Pantoprazole Sodium (Protonix Inj) 40 mg IVP DAILY [facility] Last Admin: 03/25/17 08:24 Dose: 40 mg Spironolactone (Aldactone) 50 mg PO BID [facility] Last Admin: 03/25/17 17:58 Dose: 50 mg Physical Exam - Head Exam Head Exam: ATRAUMATIC - Eye Exam Eye Exam: Normal appearance - ENT Exam ENT Exam: Normal Exam - Neck Exam Neck exam: Positive for: Normal Inspection - Respiratory Exam Respiratory Exam: Clear to Auscultation Bilateral - Cardiovascular Exam Cardiovascular Exam: REGULAR RHYTHM, +S1, +S2 - GI/Abdominal Exam GI & Abdominal Exam: Distended, Firm, Normal Bowel Sounds Results - Vital Signs Recent Vital Signs: Last Vital Signs Temp 98.7 F 03/25/17 16:53 Pulse 103 H 03/25/17 16:53 Resp 18 03/25/17 16:53 BP 123/74 03/25/17 16:53 Pulse Ox 99 03/25/17 16:53 - Labs Result Diagrams: 03/25/17 06:55 03/25/17 06:55 Labs: Laboratory Results - last 24 hr 03/25/17 03/25/17 03/25/17 06:55 06:55 13:00 WBC 9.2 RBC 3.81 L Hgb 9.1 L Hct 29.7 L MCV 78.0 L D MCH 24.0 L MCHC 30.7 L RDW 25.2 H Plt Count 256 MPV 8.4 Neut % (Auto) 68.9 Lymph % (Auto) 16.4 L [place] % (Auto) 13.0 H Eos % (Auto) 0.8 Baso % (Auto) 0.9 Neut # 6.3 Lymph # 1.5 [place] # 1.2 H Eos # 0.1 Baso # 0.1 Sodium 136 Potassium 4.8 Chloride 105 Carbon Dioxide 16 L Anion Gap 20 BUN 11 Creatinine 0.7 L Est GFR ( Amer) > 60 Est GFR (Non-Af Amer) > 60 Random Glucose 204 H Calcium 8.4 Total Bilirubin 1.2 AST 85 H ALT 36 Alkaline Phosphatase 193 H Total Protein 7.4 Albumin 2.7 L Globulin 4.8 H Albumin/Globulin Ratio 0.6 L Fluid Source Peritoneal/ascites Fluid Appearance Clear Fluid WBC 105.0 Fluid RBC 78.0 H Fluid Tot Cell Count TEST NOT PERFORMED Fluid Neutrophils 5.0 H Fluid Lymphocytes 37.0 H Fld Monocyte/Macrophag 8 H Fluid Glucose 165 Fluid Total Protein < 2.0 Fluid LDH 252 Fluid Amylase 138 Fluid Triglycerides 32 Fluid Comment Pale yellow Assessment & Plan (1) Ascites of liver Assessment and Plan: Parascentesis by IR today. Relace each liter removed with approximately 6 grams of albumin. Diuretics and salt restriced diet.If protein in ascitic fluid less than one outpatient antibiotic SBP prophylaxis. Status: Acute
--- NOTE | 2017-03-25 21:01 | CP.PCM.HP ---
History of Present Illness - History of Present Illness History of Present Illness: CC: Abdominal pain. 56 y/o M, c/o of Abdominal pain, onset 2 month ago, gradually increasing, mild pain 2:10, constant, associated to abdominal distension, worsening symptoms: Edema lower extremities Aggravated factor: Hx of Liver Cirrhosis 2nd to Hx of ETHO abuse. Pt sent to [facility] by his PMD, Dr. Willingham with scheduled admission to have Paracentesis by IR today 03/25/17 due to severe Ascites. Patient Hx of ETOH Liver Cirrhosis , He was recently AD [facility] He had Paracentesis 9 Liters removed and PRBC transfusion for Anemia Pt is S/P Paracentesis now with 8 Lt fluid removed. He denied: Fever, chills , n/v/d,hematemesis , melena , rectal bleeding , CP, SOB. PMHx: Liver Cirrhosis, HTN, DMII, Anemia. EKG: Sinus Tachycardia. Present on Admission - Present on Admission Any Indicators Present on Admission: Yes History of Uncontrolled Diabetes: Yes Review of Systems - Constitutional Constitutional: Other (negative) - EENT Eyes: Requires Corrective Lenses Ears: Other (negative) Nose/Mouth/Throat: Other (negative) - Cardiovascular Cardiovascular: Leg Edema, Other (negative) - Respiratory Respiratory: Other (neg) - Gastrointestinal Gastrointestinal: Abdominal Pain Additional comments: Abdominal distention - Genitourinary Genitourinary: Other (negative) - Musculoskeletal Musculoskeletal: Other (negative) - Integumentary Integumentary: Other (negative) - Neurological Neurological: Other (negative) - Psychiatric Psychiatric: Other (negative) - Endocrine Endocrine: Other (negative) - Hematologic/Lymphatic Hematologic: Other (anemia) Past Patient History - Infectious Disease Hx of Infectious Diseases: None - Past Medical History & Family History Past Medical History?: Yes Pertinent Family History: Unknown - Past Social History Smoking Status: Heavy Smoker > 10 Cigarettes Daily Alcohol: Other (Hx alcohol abuse) Drugs: Denies Home Situation {Lives}: Other - CARDIAC Hx Cardiac Disorders: Yes Hx Hypertension: Yes - PULMONARY Hx Respiratory Disorders: No - NEUROLOGICAL Hx Neurological Disorder: No - HEENT Hx HEENT Problems: Yes Other/Comment: Use eyeglasses - RENAL Hx Chronic Kidney Disease: No - ENDOCRINE/METABOLIC Hx Endocrine Disorders: Yes Hx Diabetes Mellitus Type 2: Yes - HEMATOLOGICAL/ONCOLOGICAL Hx Blood Disorders: Yes Hx Anemia: Yes - INTEGUMENTARY Hx Dermatological Problems: No - MUSCULOSKELETAL/RHEUMATOLOGICAL Hx Musculoskeletal Disorders: No Hx Falls: No - GASTROINTESTINAL Hx Gastrointestinal Disorders: No - GENITOURINARY/GYNECOLOGICAL Hx Genitourinary Disorders: No - PSYCHIATRIC Hx Psychophysiologic Disorder: No Hx Substance Use: No - SURGICAL HISTORY Hx Surgeries: Yes Hx Cholecystectomy: Yes - ANESTHESIA Hx Anesthesia: Yes Hx Anesthesia Reactions: No Hx Malignant Hyperthermia: No Has any member of the family had a problem w/ anesthesia?: No Meds Allergies/Adverse Reactions: Allergies Allergy/AdvReac Type Severity Reaction Status Date / Time No Known Allergies Allergy Verified 03/24/17 17:37 Physical Exam - Constitutional Appears: No Acute Distress, Chronically Ill - Head Exam Head Exam: NORMAL INSPECTION - Eye Exam Eye Exam: PERRL - ENT Exam ENT Exam: Normal Oropharynx - Neck Exam Neck exam: Positive for: Normal Inspection - Respiratory Exam Respiratory Exam: Decreased Breath Sounds (at bases) - Cardiovascular Exam Cardiovascular Exam: REGULAR RHYTHM - GI/Abdominal Exam GI & Abdominal Exam: Distended, Firm, Normal Bowel Sounds - Extremities Exam Additional comments: Legs edema - Back Exam Back exam: NORMAL INSPECTION - Neurological Exam Neurological exam: Alert, Oriented x3 Additional comments: No focal motor /sensory deficit. - Psychiatric Exam Psychiatric exam: Normal Mood - Skin Skin Exam: Warm Additional comments: Jaundice. Results - Vital Signs Recent Vital Signs: Last Vital Signs Temp 98.7 F 03/25/17 16:53 Pulse 103 H 03/25/17 16:53 Resp 18 03/25/17 16:53 BP 123/74 03/25/17 16:53 Pulse Ox 99 03/25/17 16:53 reviewed J.PJohny - Labs Result Diagrams: 03/26/17 06:00 03/26/17 06:00 Labs: Laboratory Results - last 24 hr 03/25/17 03/25/17 03/25/17 06:55 06:55 13:00 WBC 9.2 RBC 3.81 L Hgb 9.1 L Hct 29.7 L MCV 78.0 L D MCH 24.0 L MCHC 30.7 L RDW 25.2 H Plt Count 256 MPV 8.4 Neut % (Auto) 68.9 Lymph % (Auto) 16.4 L [place] % (Auto) 13.0 H Eos % (Auto) 0.8 Baso % (Auto) 0.9 Neut # 6.3 Lymph # 1.5 [place] # 1.2 H Eos # 0.1 Baso # 0.1 Sodium 136 Potassium 4.8 Chloride 105 Carbon Dioxide 16 L Anion Gap 20 BUN 11 Creatinine 0.7 L Est GFR ( Amer) > 60 Est GFR (Non-Af Amer) > 60 Random Glucose 204 H Calcium 8.4 Total Bilirubin 1.2 AST 85 H ALT 36 Alkaline Phosphatase 193 H Total Protein 7.4 Albumin 2.7 L Globulin 4.8 H Albumin/Globulin Ratio 0.6 L Fluid Source Peritoneal/ascites Fluid Appearance Clear Fluid WBC 105.0 Fluid RBC 78.0 H Fluid Tot Cell Count TEST NOT PERFORMED Fluid Neutrophils 5.0 H Fluid Lymphocytes 37.0 H Fld Monocyte/Macrophag 8 H Fluid Glucose 165 Fluid Total Protein < 2.0 Fluid LDH 252 Fluid Amylase 138 Fluid Triglycerides 32 Fluid Comment Pale yellow reviewed J.P. - EKG Data EKG comments: reviewed J.P. Assessment & Plan (1) Alcoholic cirrhosis of liver with ascites Status: Chronic Priority: High (2) Anemia Status: Chronic Priority: High (3) DMII (diabetes mellitus, type 2) Status: Chronic Priority: Medium - Assessment and Plan (Free Text) Plan: Continue Percocet, Lasix, Aldactone, Protonix, monitor BS. and rest of tx. IR , GI consult appreciated. - Date & Time Date: 03/25/17 Time: 13:30
[2017-03-25 21:06] VITALS: O2SAT 100
[2017-03-26 06:50] LABS: BASO # 0.2 K/uL (0.0-0.2); BASO % 2.7 % (0.0-2.0); EOS # 0.1 K/uL (0.0-0.7); EOS % 0.9 % (0.0-4.0); LYMPH # 1.7 K/uL (1.0-4.3); LYMPH % 19.4 % (20.0-40.0); MEAN CELL VOLUME 74.7 fl (80.0-94.0); MEAN CORPUSCULAR HEMOGLOBIN 23.6 pg (27.0-31.0); MEAN CORPUSCULAR HGB CONC 31.6 g/dL (33.0-37.0); MEAN PLATELET VOLUME 9.3 fl (7.2-11.7); MONO % 11.2 % (0.0-10.0); NEUT # 5.6 K/uL (1.8-7.0); NEUT % 65.8 % (50.0-75.0); NRBC % 0.1 % (0.0-0.0); RED CELL DISTRIBUTION WIDTH 25.3 % (11.5-14.5); WHITE BLOOD COUNT 8.5 K/uL (4.8-10.8)
[2017-03-26 06:53] LABS: ALB/GLOB RATIO 0.6 (1.0-2.1); ALKALINE PHOSPHATASE 125 U/L (38-126); ALT/SGPT 36 U/L (21-72); AST/SGOT 59 U/L (17-59); BILIRUBIN,TOTAL 1.2 mg/dl (0.2-1.3); BLOOD UREA NITROGEN 7 mg/dl (9-20); CALCIUM 8.3 mg/dL (8.4-10.2); CARBON DIOXIDE 22 mmol/L (22-30); CHLORIDE 103 mmol/L (98-107); CHOLESTEROL 91 mg/dL (0-199); GFR AFRICAN-AMERICAN > 60; GLUCOSE,RANDOM 104 mg/dL (75-110); POTASSIUM 4.1 MMOL/L (3.6-5.0); SODIUM 136 mmol/l (132-148); TOTAL PROTEIN 6.4 G/DL (6.3-8.2)
[2017-03-26 07:36] VITALS: BP 131/86; PULSE 109; RESP 20; TEMP 99
--- NOTE | 2017-03-26 10:46 | PQF ANEMIA ---
This form is a permanent part of the medical record 03/26/17 Dr. Phillip, Would you please further clarify the type of anemia if known. See physician response below. History of anemia. H&H 8.01/26, MCV 74.7 and MCH 23.6. Treated with ferrous sulfate. Clarification of your documentation is requested to better reflect the severity of illness and intensity of treatment of your patient. Indicators present [x] Anemia [x] H&H 8., MCV 74.7, MCH 23.6 [] Hypotension [] GI Bleed [] Transfusion(s) [] Acute bleed other sites [] Tachycardia [] Surgical Procedure Blood Loss (expected not a complication) Other:[] Location in the medical record that reflects the above clinical findings: [x] H& P, notes Treatment Provided: [x] Ferrous sulfate PHYSICIAN'S RESPONSE Based on your medical judgment of the clinical indicators outlined above, are you treating this patient for a known or suspected: [ ] Acute blood loss anemia [ ] Chronic blood loss anemia [ ] Acute on Chronic blood loss anemia [ ] Microcytic anemia [ ] Macrocytic anemia [ ] Normocytic anemia [ ] Anemia due to malignancy [ ] Anemia due to chemotherapy or radiation therapy [ ] Anemia of Chronic Disease, please specify: [] [ ] Other, please indicate type of anemia []____ [ ] If Unable to Determine, please check the box, sign and date. Present On Admission (POA) Indicator: [] Present at the time of admission [] Not present at the time of admission [] Clinically Undetermined In responding to this query, please exercise your independent professional judgment. The fact that a question is asked does not imply that any particular answer is desired or expected. Thank you for your clarification on this documentation. If you have any questions please call:[phone] [facility] Department * Thank you, Kelley Haynes RN CDMP MTDD
--- NOTE | 2017-03-26 12:19 | RAD ---
PROCEDURE: CHEST RADIOGRAPH, 1 VIEW HISTORY: Ascites COMPARISON: 05/16/2010 FINDINGS: LUNGS: Clear. PLEURA: No pneumothorax or pleural fluid seen. CARDIOVASCULAR: Normal. OSSEOUS STRUCTURES: No significant abnormalities. VISUALIZED UPPER ABDOMEN: Normal. OTHER FINDINGS: None. IMPRESSION: No active disease.
--- NOTE | 2017-03-26 15:14 | CP.PCM.PN ---
Subjective - Date & Time of Evaluation Date of Evaluation: 03/26/17 Time of Evaluation: 12:30 - Subjective Subjective: F/U Cirrhosis of liver with Ascites. Pt with no abdominal pain, feeling better. Objective - Vital Signs/Intake and Output Vital Signs (last 24 hours): Temp Pulse Resp BP Pulse Ox 99 F 109 H 20 131/86 100 03/26/17 07:35 03/26/17 07:35 03/26/17 07:35 03/26/17 10:59 03/26/17 07:35 - Medications Medications: Current Medications Ferrous Sulfate (Feosol) 325 mg PO BID [facility] Last Admin: 03/26/17 10:57 Dose: 325 mg Furosemide (Lasix) 40 mg IVP DAILY [facility] Last Admin: 03/26/17 10:59 Dose: 40 mg Oxycodone/Acetaminophen (Percocet 5/325 Mg Tab) 1 tab PO Q8 PRN PRN Reason: Pain, moderate (4-7) Stop: 03/28/17 09:46 Last Admin: 03/25/17 10:52 Dose: 1 tab Pantoprazole Sodium (Protonix Inj) 40 mg IVP DAILY [facility] Last Admin: 03/26/17 10:58 Dose: 40 mg Spironolactone (Aldactone) 50 mg PO BID [facility] Last Admin: 03/26/17 11:08 Dose: 50 mg - Labs Labs: 03/26/17 06:00 03/26/17 06:00 PT 12.3 SECONDS (9.6-11.2) H 03/24/17 19:35 INR 1.18 (0.92-1.08) H 03/24/17 19:35 APTT 28.7 SECONDS (23.3-32.5) 03/24/17 19:35 - Constitutional Appears: No Acute Distress, Chronically Ill - Head Exam Head Exam: NORMAL INSPECTION - Eye Exam Eye Exam: PERRL - ENT Exam ENT Exam: Normal Oropharynx - Neck Exam Neck Exam: Normal Inspection - Respiratory Exam Respiratory Exam: Decreased Breath Sounds (at bases) - Cardiovascular Exam Cardiovascular Exam: REGULAR RHYTHM - GI/Abdominal Exam GI & Abdominal Exam: Distended, Soft (ascites), Normal Bowel Sounds - Extremities Exam Additional comments: Legs edema - Back Exam Back Exam: NORMAL INSPECTION - Neurological Exam Neurological Exam: Alert, Oriented x3 Additional comments: No focal motor/sensory deficit - Psychiatric Exam Psychiatric exam: Normal Mood - Skin Skin Exam: Warm Assessment and Plan (1) Alcoholic cirrhosis of liver with ascites Status: Chronic (2) Anemia Status: Chronic (3) DMII (diabetes mellitus, type 2) Status: Chronic - Assessment and Plan (Free Text) Plan: Pt stable from Thoracentesis, clear by GI, Improved and stable to be discharged , f/u with PMD, GI travel service consultant.
== END 2017-03-26 18:41 | disposition home or self-care (01) | DRG 202 ==
LOC: H.ER 17:01 → H.ERHOLD 21:54 → H.MEDSURG1 03-25 00:03
PROVIDERS: ADMIT Internal Medicine Pulmonary Disease; ATTEND Internal Medicine Pulmonary Disease
PROC: 0W9G3ZZ Drainage of Peritoneal Cavity, Percutaneous Approach (ICD-10-PCS; principal; 2017-03-25)
DX: K70.31 Alcoholic cirrhosis of liver with ascites (principal); D64.9 Anemia, unspecified; I10 Essential (primary) hypertension; E11.9 Type 2 diabetes mellitus without complications; F17.210 Nicotine dependence, cigarettes, uncomplicated

== ENCOUNTER 2017-05-12 13:28 | Inpatient (IN) | payer OTHER ==
--- NOTE | 2017-05-12 14:46 | ED PDOC ---
HPI: Abdomen Time Seen by Provider: 05/12/17 14:00 Chief Complaint (Nursing): Abdominal Pain Chief Complaint (Provider): Abdominal pain History Per: Patient Additional Complaint(s): CC: Abdominal pain. 56 y/o M, c/o of Abdominal pain, onset 4 month ago, gradually increasing, mild pain 2:10, constant, associated to abdominal distension, worsening symptoms: Edema lower extremities Aggravated factor: Hx of Liver Cirrhosis 2nd to Hx of ETHO abuse. Pt's PMD is Dr. Willingham. Upon chart review, pt had similar symptoms on 03/25 and was admitted to have Paracentesis by IR due to severe Ascites. Patient Hx of ETOH Liver Cirrhosis. Pt had a Paracentesis done on 02/28/17 as well, 9 Liters removed and PRBC transfusion for Anemia At this time he denies: Fever, chills, n/v/d,hematemesis , melena , rectal bleeding , CP, SOB. PMHx: Liver Cirrhosis, HTN, DMII, Anemia. Past Medical History Reviewed: Historical Data, Nursing Documentation, Vital Signs Vital Signs: Last Vital Signs Temp 99 F 05/12/17 13:45 Pulse 76 05/12/17 17:00 Resp 18 05/12/17 17:00 BP 93/64 L 05/12/17 17:00 Pulse Ox 98 05/12/17 18:27 - Medical History PMH: Anemia, HTN Denies: Arthritis, Depression (denies), Chronic Kidney Disease - Surgical History Surgical History: Cholecystectomy - Family History Family History: States: Unknown Family Hx - Social History Current smoker - smoking cessation education provided: No Alcohol: > 2 Drinks/Day (Former drinker) Drugs: Denies - Home Medications Home Medications: Ambulatory Orders Medication Instructions Recorded Cyclobenzaprine [Flexeril] 10 mg PO BID PRN 05/12/17 Diclofenac Sodium [Voltaren] 50 mg PO BID 05/12/17 Furosemide [Lasix] 20 mg PO QPM 05/12/17 Furosemide [Lasix] 40 mg PO DAILY 05/12/17 Meclizine [Meclizine*] 25 mg PO BID PRN 05/12/17 MetFORMIN [glucoPHAGE] 1,000 mg PO BID 05/12/17 Metoprolol Succinate [Toprol XL] 50 mg PO DAILY 05/12/17 Phenylephrine HCl/Prometh HCl 5 ml PO Q6H 05/12/17 [Promethazine Vc Syrup] Spironolactone [Aldactone] 25 mg PO BID 05/12/17 glyBURIDE [Micronase] 5 mg PO DAILY 05/12/17 - Allergies Allergies/Adverse Reactions: Allergies Allergy/AdvReac Type Severity Reaction Status Date / Time No Known Allergies Allergy Verified 05/12/17 13:45 Review of Systems ROS Statement: Except As Marked, All Systems Reviewed And Found Negative Constitutional: Positive for: Weakness Gastrointestinal: Positive for: Abdominal Pain Physical Exam - Reviewed Nursing Documentation Reviewed: Yes Vital Signs Reviewed: Yes - Physical Exam Appears: Positive for: Well, Non-toxic, No Acute Distress Head Exam: Positive for: ATRAUMATIC, NORMAL INSPECTION, NORMOCEPHALIC Skin: Positive for: Warm, Pallor Eye Exam: Positive for: EOMI, Normal appearance, PERRL ENT: Positive for: Normal ENT Inspection Neck: Positive for: Normal, Painless ROM Cardiovascular/Chest: Positive for: Regular Rate, Rhythm Respiratory: Positive for: CNT, Normal Breath Sounds Gastrointestinal/Abdominal: Positive for: Bowel Sounds (hypoactive), Tenderness , Distended, Asicites Back: Positive for: Normal Inspection Extremity: Positive for: Normal ROM Neurologic/Psych: Positive for: Alert, Oriented - Laboratory Results Result Diagrams: 05/12/17 15:17 05/12/17 15:17 - ECG O2 Sat by Pulse Oximetry: 98 Medical Decision Making Medical Decision Making: EKG NSR at 77 bpm, no axis deviation or acute ST changes, as read by ED MD Repeat vitals on quality assurance monitor: P: 82 POX: 97% on RA 93/64 BP IV access established and diagnostics ordered Lab contacted fiction and nonfiction prose writer with Hgb of 6.8. Pt educated on results and demonstrated full understanding. Need for blood transfusion discussed and Pt agreed, consent obtained by fiction and nonfiction prose writer. Dr. Dos Santos contacted by fiction and nonfiction prose writer. Agreed with treatment plan at this time, advised admission under hospitalist service. Dr. Navarro presented to see and evaluate Pt at bedside. IR contacted by Dr. Navarro. Traffic Control Specialist contracted Dr. Miguel who happened to be present in ED. Dr. Miguel presented to bedside, 16:20. Disposition - Clinical Impression Clinical Impression: Anemia, Ascites - Patient ED Disposition Is Patient to be Admitted: Yes - Disposition Disposition Time: 18:37 Condition: STABLE - Pt Status Changed To: Hospital Disposition Of: Inpatient - Admit Certification Admit to Inpatient:: After my assessment, the patient will require hospitalization for at least two midnights. This is because of the severity of symptoms shown, intensity of services needed, and/or the medical risk in this patient being treated as an outpatient. - POA Present On Arrival: None
[2017-05-12 15:30] LABS: BASO # 0.1 K/uL (0.0-0.2); BASO % 0.6 % (0.0-2.0); EOS # 0.2 K/uL (0.0-0.7); EOS % 1.7 % (0.0-4.0); HEMATOCRIT 21.8 % (35.0-51.0); LYMPH # 1.7 K/uL (1.0-4.3); MEAN CELL VOLUME 74.6 fl (80.0-94.0); MEAN CORPUSCULAR HEMOGLOBIN 23.1 pg (27.0-31.0); MEAN PLATELET VOLUME 8.8 fl (7.2-11.7); MONO # 1.3 K/uL (0.0-0.8); MONO % 10.9 % (0.0-10.0); NEUT # 8.7 K/uL (1.8-7.0); NEUT % 72.8 % (50.0-75.0); NRBC % 0.1 % (0.0-0.0); RED CELL DISTRIBUTION WIDTH 19.5 % (11.5-14.5); WHITE BLOOD COUNT 11.9 K/uL (4.8-10.8)
[2017-05-12 15:43] LABS: ALB/GLOB RATIO 0.6 (1.0-2.1); ALKALINE PHOSPHATASE 123 U/L (38-126); ALT/SGPT 34 U/L (21-72); AMYLASE 112 U/L (30-110); AST/SGOT 84 U/L (17-59); BILIRUBIN,TOTAL 1.2 mg/dl (0.2-1.3); BLOOD UREA NITROGEN 18 mg/dl (9-20); CALCIUM 8.4 mg/dL (8.4-10.2); CARBON DIOXIDE 24 mmol/L (22-30); CHLORIDE 97 mmol/L (98-107); GFR AFRICAN-AMERICAN > 60; GLUCOSE,RANDOM 114 mg/dL (75-110); LIPASE 303 U/L (23-300); SODIUM 129 mmol/l (132-148); TOTAL PROTEIN 7.5 G/DL (6.3-8.2)
[2017-05-12 15:59] LABS: POTASSIUM 4.7 MMOL/L (3.6-5.0)
--- NOTE | 2017-05-12 16:40 | RAD ---
PROCEDURE: CHEST RADIOGRAPH, 1 VIEW HISTORY: abdominal pain COMPARISON: 03/26/2017 FINDINGS: LUNGS: Clear. PLEURA: No pneumothorax or pleural fluid seen. CARDIOVASCULAR: No radiographic findings to suggest acute or significant cardiovascular disease. OSSEOUS STRUCTURES: No significant abnormalities. VISUALIZED UPPER ABDOMEN: Normal. OTHER FINDINGS: None. IMPRESSION: No active disease. No acute/significant interval changes.
--- NOTE | 2017-05-12 17:17 | CP.PCM.CON ---
<Patt Mcbride - Last Filed: 05/12/17 17:29> History of Present Illness - History of Present Illness History of Present Illness: Gastroenterology Fellow/PGY4 Consult Note 56 year male with history of ongoing alcohol abuse, recurrent decompensated alcoholic cirrhosis secondary to ascites and hepatic encephalopathy presenting with confusion and abdominal distension. Patient is noted to have altered metal status with limited history obtained. Notes his abdomen and legs are swollen. Endorses taking fluid pills at home. On record review, 1-liter paracentesis 03/25 and 9-liter large volume paracentesis on 03/01/17. No signs of hematemesis, hematochezia, melena endorsed by patient. Prior alcohol intoxication during admission March 2017 with decompensated cirrhosis. No prior EGD or colonoscopy on record review. Family,Social, Surgical history-unable to obtain due to altered mental status Record review- history of cholecystectomy Review of Systems - Review of Systems Review of Systems: A 12-point review of systems limited in setting of altered mental status Past Patient History - Infectious Disease Hx of Infectious Diseases: None - Past Medical History & Family History Past Medical History?: Yes - Past Social History Smoking Status: Heavy Smoker > 10 Cigarettes Daily - CARDIAC Hx Hypertension: Yes - PULMONARY Hx Respiratory Disorders: No - NEUROLOGICAL Hx Neurological Disorder: No - HEENT Hx HEENT Problems: Yes Other/Comment: Use eyeglasses - RENAL Hx Chronic Kidney Disease: No - ENDOCRINE/METABOLIC Hx Endocrine Disorders: Yes Hx Diabetes Mellitus Type 2: Yes - HEMATOLOGICAL/ONCOLOGICAL Hx Anemia: Yes - INTEGUMENTARY Hx Dermatological Problems: No - MUSCULOSKELETAL/RHEUMATOLOGICAL Hx Arthritis: No - GASTROINTESTINAL Hx Gastrointestinal Disorders: No Other/Comment: Liver cirrhosis - GENITOURINARY/GYNECOLOGICAL Hx Genitourinary Disorders: No - PSYCHIATRIC Hx Depression: No (denies) - SURGICAL HISTORY Hx Cholecystectomy: Yes - ANESTHESIA Hx Anesthesia: Yes Hx Anesthesia Reactions: No Hx Malignant Hyperthermia: No Meds Allergies/Adverse Reactions: Allergies Allergy/AdvReac Type Severity Reaction Status Date / Time No Known Allergies Allergy Verified 05/12/17 13:45 - Medications Medications: Current Medications Furosemide (Lasix) 20 mg PO QPM [facility] Furosemide (Lasix) 40 mg PO DAILY [facility] Glyburide (Micronase) 5 mg PO DAILY [facility] Lactulose (Enulose) 20 gm PO QID [facility] Metformin HCl (Glucophage) 1,000 mg PO BID [facility] Metoprolol Succinate (Toprol Xl) 50 mg PO DAILY [facility] Spironolactone (Aldactone) 25 mg PO BID [facility] Physical Exam - Constitutional Appears: No Acute Distress, Confused, Chronically Ill - Head Exam Head Exam: ATRAUMATIC, NORMOCEPHALIC - Eye Exam Eye Exam: EOMI, PERRL Pupil Exam: PERRL. absent: Miosis, Mydriatic - ENT Exam ENT Exam: Mucous Membranes Dry, Normal Oropharynx - Neck Exam Neck exam: Positive for: Full Rom, Normal Inspection - Respiratory Exam Respiratory Exam: Clear to Auscultation Bilateral. absent: Rales, Rhonchi, Wheezes - Cardiovascular Exam Cardiovascular Exam: RRR, +S1, +S2. absent: Gallop, Rubs - GI/Abdominal Exam GI & Abdominal Exam: Distended, Normal Bowel Sounds, Organomegaly, Soft. absent : Firm, Guarding, Rebound, Rigid, Tenderness Additional comments: fluid wave present - Extremities Exam Additional comments: 2-3+ B/L LE pitting edema - Neurological Exam Neurological exam: Altered Additional comments: asterixis present - Psychiatric Exam Additional comments: altered mental status, unable to assess - Skin Skin Exam: Dry, Intact, Normal Color, Warm Results - Vital Signs Recent Vital Signs: Last Vital Signs Temp 99 F 05/12/17 13:45 Pulse 76 05/12/17 17:00 Resp 18 05/12/17 17:00 BP 93/64 L 05/12/17 17:00 Pulse Ox 97 05/12/17 17:00 - Labs Result Diagrams: 05/12/17 15:17 05/12/17 15:17 Assessment & Plan - Assessment and Plan (Free Text) Assessment: 56 year male with history of ongoing alcohol abuse, recurrent decompensated alcoholic cirrhosis secondary to ascites and hepatic encephalopathy presenting with confusion and abdominal distension. Active treatment of decompensated cirrhosis secondary to ascites and hepatic encephalopathy. No prior EGD or colonoscopy on record review. Plan: >MELD- pending INR >obtain Abdominal U/S >IR for diagnostic and therapeutic paracentesis with fluid analysis >ordered Hepatitis panel >lactulose QID, titrate to 2-3 BMs daily >continue Lasix 40mg, spironolactone 100mg >pending alcohol level >microcytic anemia, iron deficiency >baseline Hb 8-9 >receiving 1unit pRBC in ER >will benefit from elective EGD for variceal screening and colonoscopy for CRC screening, and iron deficiency anemia >will follow clinical course <Alek Miguel MD - Last Filed: 05/12/17 17:40> Meds - Medications Medications: Current Medications Furosemide (Lasix) 20 mg PO QPM [facility] Furosemide (Lasix) 40 mg PO DAILY [facility] Glyburide (Micronase) 5 mg PO DAILY [facility] Lactulose (Enulose) 20 gm PO QID [facility] Metformin HCl (Glucophage) 1,000 mg PO BID [facility] Metoprolol Succinate (Toprol Xl) 50 mg PO DAILY [facility] Spironolactone (Aldactone) 25 mg PO BID [facility] Results - Vital Signs Recent Vital Signs: Last Vital Signs Temp 99 F 05/12/17 13:45 Pulse 76 05/12/17 17:00 Resp 18 05/12/17 17:00 BP 93/64 L 05/12/17 17:00 Pulse Ox 97 05/12/17 17:00 - Labs Result Diagrams: 05/12/17 15:17 05/12/17 15:17 Attending/Attestation - Attestation I have personally seen and examined this patient.: Yes I have fully participated in the care of the patient.: Yes I have reviewed all pertinent clinical information: Yes Notes (Text): 05/12/17 17:37 Patient seen with Gi fellow in ER this evening. I agree with assessment and plan. This is a 56 year male with history of ongoing alcohol abuse, recurrent decompensated alcoholic cirrhosis secondary to ascites and hepatic encephalopathy presenting with confusion and abdominal distension. Unable to calculate MELD score due to unavailable coagulation profile. Has ongoing care at [facility] with Dr Last. Currently in grade 2 HE. Last BM 4 days ago. Needs rigorous HE regimen and IR consult for diagnostic and therapeutic paracentesis. Send ascitic fluid for cytology and culture. Continue diuretics as per sodium permitting. Avoid IVF. Will benefit from EGD/ colonoscopy if not done at outside facility once acute HE resolves- can be done as outpatient. Will follow patient closely
--- NOTE | 2017-05-12 17:44 | CP.PCM.HP ---
History of Present Illness - History of Present Illness History of Present Illness: CC: Water in stomach HPI: 56 year old male ETOH cirrhosis with ascites, long standing ETOH abuse, HTN , DM, chronic anemia presents to the ER today for "water in the stomach." Ascites is severe, worsening over 4 month period, associated with confusion. Patient is poor historian, currently grade II hepatic encephalopathy. Unable to obtain further history. GI at bedside, discussed. Lactulose added, IR consulted for paracentesis tomorrow. Pt also anemic Hgb 6.8, transfusing one unit PRBC in ER. 03/04/17 Paracentesis 9L aspirated 03/25/17 Paracentesis 8L out clear yellow fluid drained by IR ROS: per HPI, all other systems reviewed and negative by co PMD: Dr. Willingham PMH: Liver Cirrhosis, HTN, DMII, Anemia PSH: UNABLE TO OBTAIN 2/2 ENCEPHALOPATHY FH: UNABLE TO OBTAIN 2/2 ENCEPHALOPATHY SH: etoh abuse hx Allergies: NKDA Vitals: reviewed and currently stable Temp Pulse Resp BP Pulse Ox 99 F 76 18 93/64 L 97 05/12/17 13:45 05/12/17 17:00 05/12/17 17:00 05/12/17 17:00 05/12/17 17:00 Exam: GEN: thin, pale HEENT: NCAT, PERRL, EOMI NECK: supple, no JVD, no lymphadenopathy CARDIAC: +S1S2 RRR LUNG: CTAB No WRR ABD: distended.unable to assess mass/hsm 2/2 distention EXT: +pedal pulses, equal strength, edema bilateral LE SKIN warm, dry PSYCH hepatic encephalopathy Labs: 05/12/17 15:17 05/12/17 15:17 05/12/17 05/12/17 05/12/17 15:17 15:17 15:17 WBC 11.9 H RBC 2.92 L Hgb 6.8 L Hct 21.8 L MCV 74.6 L MCH 23.1 L MCHC 31.0 L RDW 19.5 H Plt Count 432 H D MPV 8.8 Neut % (Auto) 72.8 Lymph % (Auto) 14.0 L [place] % (Auto) 10.9 H Eos % (Auto) 1.7 Baso % (Auto) 0.6 Neut # 8.7 H Lymph # 1.7 [place] # 1.3 H Eos # 0.2 Baso # 0.1 Sodium 129 L Potassium 4.7 Chloride 97 L Carbon Dioxide 24 Anion Gap 13 BUN 18 Creatinine 1.4 Est GFR ( Amer) > 60 Est GFR (Non-Af Amer) 52 Random Glucose 114 H Calcium 8.4 Total Bilirubin 1.2 AST 84 H D ALT 34 Alkaline Phosphatase 123 Troponin I 0.0260 Total Protein 7.5 Albumin 2.8 L Globulin 4.7 H Albumin/Globulin Ratio 0.6 L Amylase 112 H D Lipase 303 H Blood Type O POSITIVE Antibody Screen Negative BBK History Checked Patient has bt Rads: CXR no active disease Active Medications: Lactulose [Enulose] 20 gm PO QID MetFORMIN [glucOPHAGE] 1,000 mg PO BID Spironolactone [Aldactone] 25 mg PO BID Furosemide [Lasix] 20 mg PO QPM Furosemide [Lasix] 40 mg PO DAILY Metoprolol Succinate [Toprol XL] 50 mg PO DAILY glyBURIDE [Micronase] 5 mg PO DAILY Assessment and Plan: 56 year old male ETOH cirrhosis with ascites, long standing ETOH abuse, HTN, DM , chronic anemia presents to the ER today for "water in the stomach." Ascites is severe, worsening over 4 month period, associated with confusion. Patient is poor historian, currently grade II hepatic encephalopathy. Unable to obtain further history. GI at bedside, discussed. Lactulose added, IR consulted for paracentesis tomorrow. 03/04/17 Paracentesis 9L aspirated 03/25/17 Paracentesis 8L aspirated clear yellow fluid drained by IR ALCOHOLIC LIVER CIRRHOSIS, ASCITES, HEPATIC ENCEPHALOPATHY currently Grade II hepatic encephalopathy cont lactulose, spironolactone, lasix GI consult appreciated IR consult appreciated Ammonia and ETOH levels pending normal LFTs INR pending Check for SBP after tap tomorrow ANEMIA H/H 6.8/21.8 PRBC ordered in ER HYPONATREMIA fluid restriction DIABETES MELLITUS cont Glyburide cont Metformin accuchecks ISS low HTN continue Lopressor VTE INR pending Present on Admission - Present on Admission Any Indicators Present on Admission: No Past Patient History - Infectious Disease Hx of Infectious Diseases: None - Past Medical History & Family History Past Medical History?: Yes - Past Social History Smoking Status: Heavy Smoker > 10 Cigarettes Daily - CARDIAC Hx Hypertension: Yes - PULMONARY Hx Respiratory Disorders: No - NEUROLOGICAL Hx Neurological Disorder: No - HEENT Hx HEENT Problems: Yes Other/Comment: Use eyeglasses - RENAL Hx Chronic Kidney Disease: No - ENDOCRINE/METABOLIC Hx Endocrine Disorders: Yes Hx Diabetes Mellitus Type 2: Yes - HEMATOLOGICAL/ONCOLOGICAL Hx Anemia: Yes - INTEGUMENTARY Hx Dermatological Problems: No - MUSCULOSKELETAL/RHEUMATOLOGICAL Hx Arthritis: No - GASTROINTESTINAL Hx Gastrointestinal Disorders: No Other/Comment: Liver cirrhosis - GENITOURINARY/GYNECOLOGICAL Hx Genitourinary Disorders: No - PSYCHIATRIC Hx Depression: No (denies) - SURGICAL HISTORY Hx Cholecystectomy: Yes - ANESTHESIA Hx Anesthesia: Yes Hx Anesthesia Reactions: No Hx Malignant Hyperthermia: No Meds Allergies/Adverse Reactions: Allergies Allergy/AdvReac Type Severity Reaction Status Date / Time No Known Allergies Allergy Verified 05/12/17 13:45 Results - Vital Signs Recent Vital Signs: Last Vital Signs Temp 99 F 05/12/17 13:45 Pulse 84 05/12/17 13:45 Resp 19 05/12/17 13:45 BP 77/50 L 05/12/17 13:45 Pulse Ox 98 05/12/17 16:42 - Labs Result Diagrams: 05/12/17 15:17 05/12/17 15:17
[2017-05-12 21:45] LABS: RBC URINE 4 /hpf (0-3); URINE BACTERIA RARE (<OCC); URINE BILIRUBIN NEGATIVE (NEGATIVE); URINE BLOOD NEGATIVE (NEGATIVE); URINE COLOR AMBER (YELLOW); URINE GLUCOSE (UA) NEG (Normal); URINE KETONE NEGATIVE (NEGATIVE); URINE LEUKOCYTE ESTERASE NEG Leu/uL (Negative); URINE PROTEIN NEGATIVE (NEGATIVE); URINE UROBILINOGEN 0.2-1.0 mg/dL (0.2-1.0); WBC URINE 7 /hpf (0-5)
[2017-05-13 06:41] LABS: BASO # 0.3 K/uL (0.0-0.2); BASO % 2.7 % (0.0-2.0); EOS # 0.2 K/uL (0.0-0.7); EOS % 1.9 % (0.0-4.0); HEMATOCRIT 30.3 % (35.0-51.0); LYMPH # 1.8 K/uL (1.0-4.3); LYMPH % 13.9 % (20.0-40.0); MEAN CORPUSCULAR HEMOGLOBIN 24.4 pg (27.0-31.0); MEAN CORPUSCULAR HGB CONC 31.4 g/dL (33.0-37.0); MEAN PLATELET VOLUME 9.1 fl (7.2-11.7); MONO # 1.4 K/uL (0.0-0.8); MONO % 11.1 % (0.0-10.0); NEUT # 8.9 K/uL (1.8-7.0); NEUT % 70.4 % (50.0-75.0); NRBC % 0.1 % (0.0-0.0); RED CELL DISTRIBUTION WIDTH 20.3 % (11.5-14.5); WHITE BLOOD COUNT 12.7 K/uL (4.8-10.8)
[2017-05-13 06:51] LABS: ALB/GLOB RATIO 0.6 (1.0-2.1); ALKALINE PHOSPHATASE 106 U/L (38-126); ALT/SGPT 35 U/L (21-72); AST/SGOT 62 U/L (17-59); BILIRUBIN,TOTAL 1.8 mg/dl (0.2-1.3); BLOOD UREA NITROGEN 18 mg/dl (9-20); CALCIUM 8.4 mg/dL (8.4-10.2); CARBON DIOXIDE 27 mmol/L (22-30); CHLORIDE 98 mmol/L (98-107); GFR AFRICAN-AMERICAN > 60; GLUCOSE,RANDOM 84 mg/dL (75-110); SODIUM 131 mmol/l (132-148); TOTAL PROTEIN 7.1 G/DL (6.3-8.2)
[2017-05-13] MEDS: Metoprolol Succinate 50 mg XL Tab PO SCH (08:49)
--- NOTE | 2017-05-13 09:21 | CP.PCM.PN ---
Subjective - Date & Time of Evaluation Date of Evaluation: 05/13/17 Time of Evaluation: 09:21 - Subjective Subjective: SEEN EXAMINED BEDSIDE ENCEPHALOPATHY MILDLY IMPROVED FROM YESTERDAY FOR PARACENTESIS TODAY INR 1.3 HD STABLE NAD. Objective - Vital Signs/Intake and Output Vital Signs (last 24 hours): Temp Pulse Resp BP Pulse Ox 97.9 F 86 18 96/58 L 96 05/13/17 05:00 05/13/17 08:49 05/13/17 05:00 05/13/17 08:49 05/13/17 05:00 Exam: GEN: thin, pale HEENT: NCAT, PERRL, EOMI no scleral ict. no jaundice NECK: supple, no JVD, no lymphadenopathy CARDIAC: +S1S2 RRR LUNG: CTAB No WRR ABD: distended.unable to assess mass/hsm 2/2 distention EXT: +pedal pulses, equal strength, edema bilateral LE SKIN warm, dry PSYCH hepatic encephalopathy - Medications Medications: Current Medications Furosemide (Lasix) 20 mg PO QPM [facility] Last Admin: 05/12/17 18:29 Dose: Not Given Furosemide (Lasix) 40 mg PO DAILY [facility] Glyburide (Micronase) 5 mg PO DAILY [facility] Last Admin: 05/13/17 08:48 Dose: 5 mg Lactulose (Enulose) 20 gm PO QID [facility] Last Admin: 05/13/17 08:54 Dose: 20 gm Metformin HCl (Glucophage) 1,000 mg PO BID [facility] Last Admin: 05/13/17 08:48 Dose: 1,000 mg Metoprolol Succinate (Toprol Xl) 50 mg PO DAILY [facility] Last Admin: 05/13/17 08:49 Dose: Not Given Spironolactone (Aldactone) 25 mg PO BID [facility] Last Admin: 05/13/17 08:48 Dose: 25 mg - Labs Labs: 05/13/17 05:45 05/13/17 05:45 PT 15.2 Seconds (9.8-13.1) H 05/13/17 05:45 INR 1.3 (0.9-1.2) H 05/13/17 05:45 APTT 33.0 Seconds (25.6-37.1) 05/13/17 05:45 - Constitutional Appears: Non-toxic, No Acute Distress - Head Exam Head Exam: ATRAUMATIC, NORMOCEPHALIC - Eye Exam Eye Exam: EOMI, Normal appearance, PERRL Pupil Exam: NORMAL ACCOMODATION - ENT Exam ENT Exam: Mucous Membranes Moist, Normal Oropharynx - Respiratory Exam Respiratory Exam: Clear to Ausculation Bilateral, NORMAL BREATHING PATTERN - Cardiovascular Exam Cardiovascular Exam: RRR, +S1, +S2 - GI/Abdominal Exam GI & Abdominal Exam: Distended. absent: Tenderness - Back Exam Back Exam: absent: CVA tenderness (L), CVA tenderness (R) - Neurological Exam Neurological Exam: Awake. absent: Alert - Psychiatric Exam Psychiatric exam: Normal Affect, Normal Mood - Skin Skin Exam: Dry, Warm Assessment and Plan - Assessment and Plan (Free Text) Plan: Assessment and Plan: 56 year old male ETOH cirrhosis with ascites, long standing ETOH abuse, HTN, DM , chronic anemia presents to the ER today for "water in the stomach." Ascites is severe, worsening over 4 month period, associated with confusion. Patient is poor historian, currently grade II hepatic encephalopathy. Unable to obtain further history. GI at bedside, discussed. Lactulose added, IR consulted for paracentesis tomorrow. 03/04/17 Paracentesis 9L aspirated 03/25/17 Paracentesis 8L aspirated clear yellow fluid drained by IR ALCOHOLIC LIVER CIRRHOSIS, ASCITES, HEPATIC ENCEPHALOPATHY Grade II hepatic encephalopathy since admission, only mildly improved Paracentesis today with IR cont lactulose, spironolactone, lasix GI consult appreciated IR consult appreciated Ammonia and ETOH levels pending normal LFTs INR 1.3 Check for SBP after tap tomorrow, for cultures ANEMIA H/H 6.8/21.8 today 9.5/30.3 PRBC transfused in ER HYPONATREMIA fluid restriction Na 131 today DIABETES MELLITUS cont Glyburide cont Metformin accuchecks ISS low HTN continue Lopressor VTE INR pending
--- NOTE | 2017-05-13 12:01 | CP.PCM.PN ---
Subjective - Date & Time of Evaluation Date of Evaluation: 05/13/17 Time of Evaluation: 11:00 - Subjective Subjective: Patient seen at bedside. Sleepy but arousable. On lactulose had one BM today. Awaiting paracentesis. Afebrile Objective - Vital Signs/Intake and Output Vital Signs (last 24 hours): Temp Pulse Resp BP Pulse Ox 98.4 F 86 20 96/58 L 96 05/13/17 09:00 05/13/17 09:00 05/13/17 09:00 05/13/17 09:00 05/13/17 09:00 - Medications Medications: Current Medications Furosemide (Lasix) 20 mg PO QPM [facility] Last Admin: 05/12/17 18:29 Dose: Not Given Furosemide (Lasix) 40 mg PO DAILY [facility] Glyburide (Micronase) 5 mg PO DAILY [facility] Last Admin: 05/13/17 08:48 Dose: 5 mg Lactulose (Enulose) 20 gm PO QID [facility] Last Admin: 05/13/17 08:54 Dose: 20 gm Metformin HCl (Glucophage) 1,000 mg PO BID [facility] Last Admin: 05/13/17 08:48 Dose: 1,000 mg Metoprolol Succinate (Toprol Xl) 50 mg PO DAILY [facility] Last Admin: 05/13/17 08:49 Dose: Not Given Spironolactone (Aldactone) 25 mg PO BID [facility] Last Admin: 05/13/17 08:48 Dose: 25 mg - Labs Labs: 05/13/17 05:45 05/13/17 05:45 PT 15.2 Seconds (9.8-13.1) H 05/13/17 05:45 INR 1.3 (0.9-1.2) H 05/13/17 05:45 APTT 33.0 Seconds (25.6-37.1) 05/13/17 05:45 - Constitutional Appears: Well, Non-toxic, No Acute Distress - Head Exam Head Exam: ATRAUMATIC, NORMAL INSPECTION, NORMOCEPHALIC Additional comments: Anicteric sclera - ENT Exam ENT Exam: Mucous Membranes Moist - Respiratory Exam Respiratory Exam: Decreased Breath Sounds, Clear to Ausculation Bilateral, NORMAL BREATHING PATTERN - Cardiovascular Exam Cardiovascular Exam: REGULAR RHYTHM, RRR, +S1, +S2. absent: Murmur - GI/Abdominal Exam GI & Abdominal Exam: Distended, Firm, Normal Bowel Sounds. absent: Tenderness - Neurological Exam Neurological Exam: Alert, Awake, Oriented x3 - Psychiatric Exam Psychiatric exam: Normal Affect, Normal Mood - Skin Skin Exam: Dry, Intact Assessment and Plan - Assessment and Plan (Free Text) Assessment: 56 year male with history of ongoing alcohol abuse, recurrent decompensated alcoholic cirrhosis secondary to ascites and hepatic encephalopathy presenting with confusion and abdominal distension. Alcoholic cirrhosis Hepatic encephalopathy Ascites Plan: >IR for diagnostic and therapeutic paracentesis with fluid analysis >ordered Hepatitis panel >lactulose QID, titrate to 2-3 BMs daily >continue Lasix 40mg, spironolactone 100mg >microcytic anemia, iron deficiency >will benefit from elective EGD for variceal screening and colonoscopy for CRC screening, and iron deficiency anemia >will follow clinical course
[2017-05-13] MEDS ORDERED: Lidocaine 1% Inj (20ml) ONE (12:11)
--- NOTE | 2017-05-13 13:30 | PCM.SURG1 ---
Surgeon's Initial Post Op Note - Surgeon's Notes Surgeon: Mynor Marin Inspector Structural Bonding: None Type of Anesthesia: Local Pre-Operative Diagnosis: Ascites, abdominal pain Operative Findings: US showed a large amount of ascites. Post-Operative Diagnosis: Ascites, abdominal pain Operation Performed: US guided paracentesis Specimen/Specimens Removed: 8.5 liters of clear fluid Estimated Blood Loss: EBL {In ML}: 0 Blood Products Given: N/A Drains Used: No Drains Post-Op Condition: Good Date of Surgery/Procedure: 05/13/17 Time of Surgery/Procedure: 13:20
--- NOTE | 2017-05-13 13:53 | CARD ---
APPROVED REPORT EKG Measurement Heart [id number] <Conclusion> Normal sinus rhythm Low voltage QRS Prolonged QT Abnormal ECG
[2017-05-13] MEDS ORDERED: Albumin Human 25% (12.5 gm/50 ml) IV ONE (16:31)
--- NOTE | 2017-05-13 18:11 | CP.PCM.DIS ---
Provider - Provider Date of Admission: 05/12/17 15:44 Attending physician: Vashti Navarro DO Time Spent in preparation of Discharge (in minutes): 20 Diagnosis - Discharge Diagnosis (1) Ascites of liver Status: Acute (2) Alcoholic cirrhosis of liver with ascites Status: Chronic Priority: High (3) DMII (diabetes mellitus, type 2) Status: Chronic Priority: Medium Hospital Course - Lab Results Lab Results: Most Recent Lab Values WBC 12.7 K/uL (4.8-10.8) H 05/13/17 05:45 RBC 3.88 Mil/uL (4.40-5.90) L 05/13/17 05:45 Hgb 9.5 g/dL (12.0-18.0) L D 05/13/17 05:45 Hct 30.3 % (35.0-51.0) L 05/13/17 05:45 MCV 78.0 fl (80.0-94.0) L D 05/13/17 05:45 MCH 24.4 pg (27.0-31.0) L 05/13/17 05:45 MCHC 31.4 g/dL (33.0-37.0) L 05/13/17 05:45 RDW 20.3 % (11.5-14.5) H 05/13/17 05:45 Plt Count 377 K/uL (130-400) 05/13/17 05:45 MPV 9.1 fl (7.2-11.7) 05/13/17 05:45 Neut % (Auto) 70.4 % (50.0-75.0) 05/13/17 05:45 Lymph % (Auto) 13.9 % (20.0-40.0) L 05/13/17 05:45 [place] % (Auto) 11.1 % (0.0-10.0) H 05/13/17 05:45 Eos % (Auto) 1.9 % (0.0-4.0) 05/13/17 05:45 Baso % (Auto) 2.7 % (0.0-2.0) H 05/13/17 05:45 Neut # 8.9 K/uL (1.8-7.0) H 05/13/17 05:45 Lymph # 1.8 K/uL (1.0-4.3) 05/13/17 05:45 [place] # 1.4 K/uL (0.0-0.8) H 05/13/17 05:45 Eos # 0.2 K/uL (0.0-0.7) 05/13/17 05:45 Baso # 0.3 K/uL (0.0-0.2) H 05/13/17 05:45 PT 15.2 Seconds (9.8-13.1) H 05/13/17 05:45 INR 1.3 (0.9-1.2) H 05/13/17 05:45 APTT 33.0 Seconds (25.6-37.1) 05/13/17 05:45 Sodium 131 mmol/l (132-148) L 05/13/17 05:45 Potassium 4.0 MMOL/L (3.6-5.0) 05/13/17 05:45 Chloride 98 mmol/L (98-107) 05/13/17 05:45 Carbon Dioxide 27 mmol/L (22-30) 05/13/17 05:45 Anion Gap 10 (10-20) 05/13/17 05:45 BUN 18 mg/dl (9-20) 05/13/17 05:45 Creatinine 1.4 mg/dL (0.8-1.5) 05/13/17 05:45 Est GFR ( Amer) > 60 05/13/17 05:45 Est GFR (Non-Af Amer) 52 05/13/17 05:45 POC Glucose (mg/dL) 134 mg/dL (65-110) H 05/13/17 16:30 Random Glucose 84 mg/dL (75-110) 05/13/17 05:45 Calcium 8.4 mg/dL (8.4-10.2) 05/13/17 05:45 Total Bilirubin 1.8 mg/dl (0.2-1.3) H 05/13/17 05:45 AST 62 U/L (17-59) H D 05/13/17 05:45 ALT 35 U/L (21-72) 05/13/17 05:45 Alkaline Phosphatase 106 U/L (38-126) 05/13/17 05:45 Ammonia 10 umo/L (16-60) L 05/12/17 17:00 Troponin I 0.0260 ng/mL (0.00-0.120) 05/12/17 15:17 Total Protein 7.1 G/DL (6.3-8.2) 05/13/17 05:45 Albumin 2.6 g/dL (3.5-5.0) L 05/13/17 05:45 Globulin 4.5 gm/dL (2.2-3.9) H 05/13/17 05:45 Albumin/Globulin Ratio 0.6 (1.0-2.1) L 05/13/17 05:45 Amylase 112 U/L (30-110) H D 05/12/17 15:17 Lipase 303 U/L (23-300) H 05/12/17 15:17 Urine Color [place] (YELLOW) 05/12/17 21:21 Urine Clarity Slighty-cloudy (Clear) 05/12/17 21:21 Urine pH 5.0 (5.0-8.0) 05/12/17 21:21 Ur Specific [place] 1.021 (1.003-1.030) 05/12/17 21:21 Urine Protein Negative mg/dL (NEGATIVE) 05/12/17 21:21 Urine Glucose (UA) Neg mg/dL (Normal) 05/12/17 21:21 Urine Ketones Negative mg/dL (NEGATIVE) 05/12/17 21:21 Urine Blood Negative (NEGATIVE) 05/12/17 21:21 Urine Nitrate Negative (NEGATIVE) 05/12/17 21:21 Urine Bilirubin Negative (NEGATIVE) 05/12/17 21:21 Urine Urobilinogen 0.2-1.0 mg/dL (0.2-1.0) 05/12/17 21:21 Ur Leukocyte Esterase Neg Lo/uL (Negative) 05/12/17 21:21 Urine RBC (Auto) 4 /hpf (0-3) H 05/12/17 21:21 Urine Microscopic WBC 7 /hpf (0-5) H 05/12/17 21:21 Ur Squamous Epith Cells 3 /hpf (0-5) 05/12/17 21:21 Urine Bacteria Rare (<OCC) 05/12/17 21:21 Hyaline Casts >20 /hpf (0-2) H 05/12/17 21:21 Alcohol, Quantitative < 10 mg/dl (0-10) 05/12/17 17:00 Hepatitis A IgM Ab Negative (NEGATIVE) 05/12/17 20:50 Hep Bs Antigen Negative (NEGATIVE) 05/12/17 20:50 Hep B Core IgM Ab Negative (NEGATIVE) 05/12/17 20:50 Hepatitis C Antibody Negative (NEGATIVE) 05/12/17 20:50 Blood Type O POSITIVE 05/12/17 15:17 Antibody Screen Negative 05/12/17 15:17 Crossmatch See Detail 05/12/17 15:17 BBK History Checked Patient has bt 05/12/17 15:17 - Hospital Course Hospital Course: 56 year old male ETOH cirrhosis with ascites, long standing ETOH abuse, HTN, DM , chronic anemia presents to the ER today for "water in the stomach." Ascites is severe, worsening over 4 month period, associated with confusion. Patient is poor historian, currently grade II hepatic encephalopathy. Unable to obtain further history. GI at bedside, discussed. Lactulose added, IR consulted for paracentesis tomorrow. 03/04/17 Paracentesis 9L aspirated 03/25/17 Paracentesis 8L aspirated clear yellow fluid drained by IR Patient had paracentesis today with 8.5 L out today with IR. Patient received albumin to help pressure, and to be discharged home in stable condition. Patient to follow up with pcp as well as GI as outpatient. Pt GI is Dr. Last. ALCOHOLIC LIVER CIRRHOSIS, ASCITES, HEPATIC ENCEPHALOPATHY Grade II hepatic encephalopathy since admission, only mildly improved Paracentesis today with IR 8.5 L out. cont lactulose, spironolactone, lasix GI consult appreciated IR consult appreciated Ammonia and ETOH levels pending normal LFTs INR 1.3 Check for SBP after tap tomorrow, for cultures ANEMIA H/H 6.8/21.8 today 9.5/30.3 PRBC transfused in ER HYPONATREMIA fluid restriction Na 131 today DIABETES MELLITUS cont Glyburide cont Metformin accuchecks ISS low HTN continue Lopressor VTE INR pending Discharge Exam - Head Exam Head Exam: ATRAUMATIC, NORMAL INSPECTION, NORMOCEPHALIC - Eye Exam Eye Exam: EOMI, Normal appearance, PERRL Pupil Exam: NORMAL ACCOMODATION - ENT Exam ENT Exam: Mucous Membranes Moist, Normal Oropharynx - Respiratory Exam Respiratory Exam: Clear to PA & Lateral, NORMAL BREATHING PATTERN - Cardiovascular Exam Cardiovascular Exam: RRR, +S1, +S2 - GI/Abdominal Exam GI & Abdominal Exam: Normal Bowel Sounds, Soft. absent: Tenderness - Extremities Exam Extremities exam: normal capillary refill, pedal pulses present - Back Exam Back exam: absent: CVA tenderness (L), CVA tenderness (R) - Neurological Exam Neurological exam: Alert, Reflexes Normal - Psychiatric Exam Psychiatric exam: Normal Affect, Normal Mood - Skin Skin Exam: Dry, Warm Discharge Plan - Discharge Medications Prescriptions: Furosemide [Lasix] 20 mg PO QPM #30 Furosemide [Lasix] 40 mg PO DAILY #30 glyBURIDE [Micronase] 5 mg PO DAILY #30 MetFORMIN [glucoPHAGE] 1,000 mg PO BID #60 Metoprolol Succinate [Toprol XL] 50 mg PO DAILY #30 Spironolactone [Aldactone] 25 mg PO BID #60 - Follow Up Plan Condition: STABLE Disposition: HOME/ ROUTINE Additional Instructions: FOLLOW UP WITH PRIMARY CARE PHYSICIAN AND GI DOCTORS IN 7-10 DAYS. RESUME DIET RESUME ACTIVITY TOLERATED RESUME MEDICATIONS PRESCRIBED RETURN TO ER IF CONDITION WORSENS
[2017-05-13 23:54] VITALS: RESP 18
[2017-05-14 05:21] VITALS: O2SAT 99
[2017-05-14 07:03] LABS: BASO # 0.1 K/uL (0.0-0.2); BASO % 0.8 % (0.0-2.0); EOS # 0.2 K/uL (0.0-0.7); EOS % 1.2 % (0.0-4.0); HEMATOCRIT 28.5 % (35.0-51.0); LYMPH # 1.7 K/uL (1.0-4.3); LYMPH % 13.5 % (20.0-40.0); MEAN CELL VOLUME 78.3 fl (80.0-94.0); MEAN CORPUSCULAR HEMOGLOBIN 24.3 pg (27.0-31.0); MEAN PLATELET VOLUME 9.7 fl (7.2-11.7); MONO # 1.4 K/uL (0.0-0.8); MONO % 11.3 % (0.0-10.0); NEUT # 9.2 K/uL (1.8-7.0); NEUT % 73.2 % (50.0-75.0); NRBC % 0.2 % (0.0-0.0); RED CELL DISTRIBUTION WIDTH 20.2 % (11.5-14.5); WHITE BLOOD COUNT 12.6 K/uL (4.8-10.8)
[2017-05-14 07:08] LABS: ALB/GLOB RATIO 0.7 (1.0-2.1); ALKALINE PHOSPHATASE 82 U/L (38-126); ALT/SGPT 31 U/L (21-72); AST/SGOT 58 U/L (17-59); BILIRUBIN,TOTAL 1.1 mg/dl (0.2-1.3); BLOOD UREA NITROGEN 20 mg/dl (9-20); CALCIUM 8.2 mg/dL (8.4-10.2); CARBON DIOXIDE 23 mmol/L (22-30); CHLORIDE 96 mmol/L (98-107); GFR AFRICAN-AMERICAN > 60; GLUCOSE,RANDOM 45 mg/dL (75-110); SODIUM 129 mmol/l (132-148); TOTAL PROTEIN 6.9 G/DL (6.3-8.2)
[2017-05-14 07:32] LABS: PARTIAL THROMBOPLASTIN TIME 32.8 Seconds (25.6-37.1)
[2017-05-14 08:51] VITALS: BP 92/63; PULSE 101; TEMP 98.2
[2017-05-14] MEDS: Metoprolol Succinate 50 mg XL Tab PO SCH (09:27)
--- NOTE | 2017-05-14 09:30 | CP.PCM.PN ---
Subjective - Date & Time of Evaluation Date of Evaluation: 05/14/17 Time of Evaluation: 09:26 - Subjective Subjective: RFV: Cirrhosis S: S/P LVP yesterday. No abdominal pain. No n/v. Has le edema. No bleeding. Objective - Vital Signs/Intake and Output Vital Signs (last 24 hours): Temp Pulse Resp BP Pulse Ox 98.2 F 101 H 18 92/63 L 99 05/14/17 08:00 05/14/17 08:00 05/14/17 08:00 05/14/17 08:00 05/14/17 08:00 - Medications Medications: Current Medications Furosemide (Lasix) 20 mg PO QPM [facility] Last Admin: 05/13/17 19:10 Dose: Not Given Furosemide (Lasix) 40 mg PO DAILY [facility] Last Admin: 05/13/17 10:17 Dose: 40 mg Glyburide (Micronase) 5 mg PO DAILY [facility] Last Admin: 05/13/17 08:48 Dose: 5 mg Lactulose (Enulose) 20 gm PO QID [facility] Last Admin: 05/13/17 23:48 Dose: Not Given Metformin HCl (Glucophage) 1,000 mg PO BID [facility] Last Admin: 05/13/17 17:55 Dose: 1,000 mg Metoprolol Succinate (Toprol Xl) 50 mg PO DAILY [facility] Last Admin: 05/13/17 08:49 Dose: Not Given Spironolactone (Aldactone) 25 mg PO BID [facility] Last Admin: 05/13/17 17:55 Dose: 25 mg - Labs Labs: 05/14/17 04:45 05/14/17 04:45 PT 15.1 Seconds (9.8-13.1) H 05/14/17 04:45 INR 1.3 (0.9-1.2) H 05/14/17 04:45 APTT 32.8 Seconds (25.6-37.1) 05/14/17 04:45 - Constitutional Appears: No Acute Distress, Chronically Ill - Head Exam Head Exam: NORMOCEPHALIC - ENT Exam ENT Exam: Mucous Membranes Moist, Normal Oropharynx - Neck Exam Neck Exam: absent: Lymphadenopathy, Thyromegaly - Respiratory Exam Respiratory Exam: Clear to Ausculation Bilateral, NORMAL BREATHING PATTERN. absent: Respiratory Distress - Cardiovascular Exam Cardiovascular Exam: +S1, +S2 - GI/Abdominal Exam GI & Abdominal Exam: Distended, Soft. absent: Tenderness - Neurological Exam Neurological Exam: Alert, Oriented x3 - Psychiatric Exam Psychiatric exam: Normal Affect, Normal Mood Assessment and Plan - Assessment and Plan (Free Text) Assessment: 56 year male with history of Etoh abuse, EtOH cirrhosis c/b ascites and HE admitted with confusion and abdominal distention. 1. Alcoholic cirrhosis 2. Hepatic encephalopathy 3. Ascites Plan: -s/p LVP by IR, with 8.5 liters removed -fluid analysis is pending, r/o sbp -continue lactulose QID -continue lasix and aldactone, would give him lasix 40 mg daily and aldactone 100 mg daily on discharge -sodium restricted diet to less than 2 g per day -recommend outpatient egd/colonoscopy -recommend etoh cessation and abstinence
--- NOTE | 2017-05-14 14:19 | US ---
Date of Procedure: 05/13/2017 PROCEDURE: Ultrasound-guided paracentesis, CPT 89332 Medications: 9cc 1% Lidocaine HISTORY: Ascites, abdominal pain, cirrhosis TECHNIQUE: Following informed consent , the patient was placed supine on the stretcher and the site was marked. A limited abdominal ultrasound was performed that showed a large amount of intra-abdominal fluid. Procedural time out was called and the Pt's abdomen was marked and prepped and draped in the usual sterile fashion. Ultrasound-guided large volume paracentesis performed. A total of 8.5 liters of straw colored fluid was removed without complication. IMPRESSION: Ultrasound-guided large volume paracentesis.
== END 2017-05-14 11:13 | disposition home or self-care (01) | DRG 200 ==
LOC: H.ER 13:28 → H.ERHOLD 15:44 → H.TEL 21:31
PROVIDERS: ADMIT Student in an Organized Health Care Education/Training Program; ATTEND Student in an Organized Health Care Education/Training Program
PROC: 30233N1 Transfusion of Nonautologous Red Blood Cells into Peripheral Vein, Percutaneous Approach (ICD-10-PCS; 2017-05-12)
PROC: 0W9G3ZX Drainage of Peritoneal Cavity, Percutaneous Approach, Diagnostic (ICD-10-PCS; principal; 2017-05-13)
DX: K70.31 Alcoholic cirrhosis of liver with ascites (principal); E87.1 Hypo-osmolality and hyponatremia; I10 Essential (primary) hypertension; D50.9 Iron deficiency anemia, unspecified; F10.20 Alcohol dependence, uncomplicated; K70.40 Alcoholic hepatic failure without coma; I95.81 Postprocedural hypotension; E11.9 Type 2 diabetes mellitus without complications; F17.210 Nicotine dependence, cigarettes, uncomplicated

== ENCOUNTER 2017-06-01 21:52 | Inpatient (IN) | payer OTHER ==
--- NOTE | 2017-06-01 22:30 | ED PDOC ---
HPI: Abdomen Chief Complaint (Provider): abdominal pain/distended History Per: Patient History/Exam Limitations: no limitations Onset/Duration Of Symptoms: Gradual Current Symptoms Are (Timing): Still Present Severity: Moderate Pain Scale Rating Of: 6 Location Of Pain/Discomfort: Diffuse Quality Of Discomfort: Unable To Describe Associated Symptoms: denies: Fever, Chills, Nausea, Vomiting, Diarrhea, Constipation, Urinary Symptoms Exacerbating Factors: None Alleviating Factors: None Last Bowel Movement: Today (2) <Antonio Tolbert - Last Filed: 06/02/17 01:14> <Belkis Menard - Last Filed: 06/02/17 14:07> Time Seen by Provider: 06/01/17 22:02 Chief Complaint (Nursing): Abdominal Pain Additional Complaint(s): 56 yo M w/ medical history of Liver cirrhosis 2ndary to EtOH, DM, HTN presents to ED via EMS due to abdominal pain/distention. Patient states since last admission, pain/distention has returned. Patient states taking certain medications though not all. Patient has not been seen by GI since last admission. BM today, daily 1-2x. No melena/brbpr noted. Patient denies fever, chills, nausea, vomiting, headache, chest pain, dizziness, lightheadedness, or sob. Patient states last etoh intake 9 months ago. Patient states bilateral lower leg swelling present though has been improving. Urinating normally. PMD: Dr. Willingham (Antonio Tolbert) Supervising Attending Note <Antonio Tolbert - Last Filed: 06/02/17 01:14> - Supervising Attending Note The Documented history was done by the: Physician Conditioning Coach The documented physical exam was done by the: Physician Conditioning Coach, Attending Physician - Attestation: I have personally seen and examined this patient.: Yes I have fully participated in the care of the patient.: Yes I have reviewed all pertinent clinical information: Yes <Belkis Menard - Last Filed: 06/02/17 14:07> - Notes: Notes:: 12am Endorsed to Dr Koch. Pt pending labs, reassessment and final ER disposition (Belkis Menard) Past Medical History Reviewed: Historical Data, Nursing Documentation, Vital Signs - Medical History PMH: Anemia, HTN Denies: Arthritis, Depression (denies), Chronic Kidney Disease - Surgical History Surgical History: Cholecystectomy - Family History Family History: States: Unknown Family Hx <Antonio Tolbert - Last Filed: 06/02/17 01:14> <Belkis Menard - Last Filed: 06/02/17 14:07> Vital Signs: Last Vital Signs Temp 98.7 F 06/02/17 13:05 Pulse 75 06/02/17 14:00 Resp 18 06/02/17 14:00 BP 118/75 06/02/17 14:00 Pulse Ox 100 06/02/17 13:05 - Home Medications Home Medications: Ambulatory Orders Medication Instructions Recorded MetFORMIN [glucoPHAGE] 1,000 mg PO BID #60 05/13/17 Spironolactone [Aldactone] 25 mg PO BID #60 05/13/17 glyBURIDE [Micronase] 5 mg PO DAILY #30 05/13/17 Amlodipine Bes/Olmesartan Med 5 mg PO DAILY 06/02/17 [Amlodipine-Olmesartan 5-20 mg] Cholecalciferol (Vitamin D3) 1 g PO BID 06/02/17 [Vitamin D3] Cyclobenzaprine [Cyclobenzaprine 10 mg PO DAILY PRN 06/02/17 HCl] Diclofenac [Diclofenac] 50 mg TOP BID 06/02/17 Ferrous Sulfate [Feosol] 325 mg PO DAILY 06/02/17 Ferrous Sulfate [Feosol] 325 mg PO DAILY 06/02/17 Folic Acid/Multivit-Min/Lutein 1 tab PO DAILY 06/02/17 [[facility] Spectravite Adult Tab Chew] Furosemide [Lasix] 40 mg PO BID 06/02/17 Gabapentin [Neurontin] 300 mg PO TID 06/02/17 Levofloxacin [Levaquin] 500 mg PO QOTHERDAY 06/02/17 Lisinopril [Zestril] 20 mg PO 06/02/17 Magnesium Oxide [Mag-Ox] 400 mg PO BID 06/02/17 Meclizine [Antivert] 25 mg PO DAILY 06/02/17 Metoprolol Succinate [Toprol XL] 50 mg PO DAILY 06/02/17 Omeprazole [Omeprazole] 40 mg PO DAILY 06/02/17 Spironolactone [Aldactone] 50 mg PO DAILY 06/02/17 Thiamine [Vitamin B1 Tab] 100 mg PO DAILY 06/02/17 - Allergies Allergies/Adverse Reactions: Allergies Allergy/AdvReac Type Severity Reaction Status Date / Time No Known Allergies Allergy Verified 05/12/17 13:45 Review of Systems ROS Statement: Except As Marked, All Systems Reviewed And Found Negative Constitutional: Negative for: Fever, Chills Respiratory: Negative for: Cough, Shortness of Breath Gastrointestinal: Positive for: Abdominal Pain. Negative for: Nausea, Vomiting , Diarrhea, Constipation, Melena, Hematemesis Genitourinary Male: Negative for: Dysuria, Frequency, Incontinence, Hematuria Skin: Negative for: Rash, Lesions <Antonio Tolbert - Last Filed: 06/02/17 01:14> Physical Exam - Reviewed Nursing Documentation Reviewed: Yes Vital Signs Reviewed: Yes - Physical Exam Appears: Positive for: Non-toxic, No Acute Distress Head Exam: Positive for: ATRAUMATIC, NORMAL INSPECTION, NORMOCEPHALIC Skin: Positive for: Normal Color, Warm, Dry Eye Exam: Positive for: Normal appearance Neck: Positive for: Normal, Painless ROM, Supple Cardiovascular/Chest: Positive for: Regular Rate, Rhythm Respiratory: Positive for: Normal Breath Sounds Gastrointestinal/Abdominal: Positive for: Bowel Sounds (normal), Tenderness, Distended, Asicites Extremity: Positive for: Pedal Edema (3+ bilaterally, left > right), Swelling Neurologic/Psych: Positive for: Alert, dairy nutrition specialist II-XII, Oriented <Antonio Tolbert - Last Filed: 06/02/17 01:14> - Laboratory Results Result Diagrams: 06/01/17 23:06 06/01/17 23:22 - ECG O2 Sat by Pulse Oximetry: 98 Pulse Ox Interpretation: Normal <Antonio Tolbert - Last Filed: 06/02/17 01:14> - Laboratory Results Result Diagrams: 06/01/17 23:06 06/01/17 23:22 <Belkis Menard - Last Filed: 06/02/17 14:07> - Progress ED Course And Treament: Time: 2221 Impression: 56 yo M w/ medical history of Liver cirrhosis 2ndary to EtOH, DM, HTN with abdominal pain/distention. PE notable for ascites and bilateral lower extremity edema. Non-toxic appearing. Hemodynamically stable. History of anemia requiring transfusions. Plan: -CBC -CMP -Coags -Ammonia -EToh serum -Lactic acid -Mg/Phos -UDS -EKG -CXR -Udip -Type and screen -IV Lasix 40mg -Tramadol 50mg -Reeval Time: 44 Patient re-evaluated. Improved symptoms. Labs/imaging reviewed, Hgb 7.8, Lipase mildly elevated, INR elevated. Patient will need treatment for ascites. Will admit to medicine explosion welder, Dr. Lugo, who accepts admission. (Antonio Tolbert) Disposition - Patient ED Disposition Is Patient to be Admitted: Yes Counseled Patient/Family Regarding: Studies Performed, Diagnosis - Disposition Disposition Time: 01:00 <Antonio Tolbert - Last Filed: 06/02/17 01:14> <Belkis Menard - Last Filed: 06/02/17 14:07> - Clinical Impression Clinical Impression: Alcoholic cirrhosis of liver with ascites, Abdominal pain - Disposition Condition: FAIR
[2017-06-01 23:12] LABS: BASO % 0.5 % (0.0-2.0); EOS # 0.1 K/uL (0.0-0.7); EOS % 0.9 % (0.0-4.0); HEMOGLOBIN 7.8 g/dL (12.0-18.0); LYMPH # 1.1 K/uL (1.0-4.3); LYMPH % 11.6 % (20.0-40.0); MEAN CELL VOLUME 81.7 fl (80.0-94.0); MEAN CORPUSCULAR HEMOGLOBIN 26.2 pg (27.0-31.0); MEAN CORPUSCULAR HGB CONC 32.1 g/dL (33.0-37.0); MEAN PLATELET VOLUME 8.2 fl (7.2-11.7); MONO # 1.2 K/uL (0.0-0.8); NEUT # 6.9 K/uL (1.8-7.0); RBC 2.97 Mil/uL (4.40-5.90); RED CELL DISTRIBUTION WIDTH 23.7 % (11.5-14.5); WHITE BLOOD COUNT 9.4 K/uL (4.8-10.8)
[2017-06-01 23:42] LABS: ALB/GLOB RATIO 0.8 (1.0-2.1); ALBUMIN 3.2 g/dL (3.5-5.0); ALT/SGPT 36 U/L (21-72); AST/SGOT 51 U/L (17-59); BLOOD UREA NITROGEN 17 mg/dl (9-20); CALCIUM 8.5 mg/dL (8.4-10.2); GFR AFRICAN-AMERICAN > 60; GFR NON-AFRICAN AMERICAN > 60; LIPASE 430 U/L (23-300); MAGNESIUM 2.5 MG/DL (1.6-2.3)
[2017-06-02 00:10] LABS: INR 1.4 (0.9-1.2); PARTIAL THROMBOPLASTIN TIME 33.4 Seconds (25.6-37.1); PROTHROMBIN TIME 15.7 Seconds (9.8-13.1)
[2017-06-02 01:11] LABS: BARBITURATES, UR NEGATIVE (NEGATIVE); BENZODIAZEPINES, UR NEGATIVE (NEGATIVE); OPIATES, UR NEGATIVE (NEGATIVE); PHENCYCLIDINE, UR NEGATIVE (NEGATIVE)
--- NOTE | 2017-06-02 09:46 | CARD ---
APPROVED REPORT EKG Measurement Heart [id number] <Conclusion> Normal sinus rhythm Low voltage QRS Prolonged QT Abnormal ECG
--- NOTE | 2017-06-02 11:16 | RAD ---
HISTORY: Ascites. Portable study 22:40. COMPARISON: 05/12/2017. FINDINGS: LUNGS: No active pulmonary disease. PLEURA: No significant pleural effusion identified, no pneumothorax apparent. CARDIOVASCULAR: Normal. OSSEOUS STRUCTURES: No significant abnormalities. VISUALIZED UPPER ABDOMEN: Normal. OTHER FINDINGS: None. IMPRESSION: No active disease. No significant interval change compared to the prior examination(s). No preliminary report provided by emergency department personnel.
[2017-06-02] MEDS ORDERED: Lidocaine 1% Inj (20ml) ONE (13:00)
--- NOTE | 2017-06-02 13:26 | CP.PCM.CON ---
History of Present Illness - History of Present Illness History of Present Illness: 56 yo male with multiple previous admissions and known alcoholic cirrhosis admitted for increasing abdominal distention. No fever or chills. No current alcohol use. He states he stopped drinking 9 months ago. Review of Systems - Constitutional Constitutional: absent: Chills - EENT Eyes: absent: Blurred Vision Ears: absent: Decreased Hearing Nose/Mouth/Throat: absent: Epistaxis - Cardiovascular Cardiovascular: absent: Chest Pain - Respiratory Respiratory: absent: Dyspnea - Gastrointestinal Gastrointestinal: absent: Abdominal Pain - Genitourinary Genitourinary: absent: Change in Urinary Stream Past Patient History - Infectious Disease Hx of Infectious Diseases: None - Past Medical History & Family History Past Medical History?: Yes - Past Social History Smoking Status: Former Smoker - CARDIAC Hx Cardiac Disorders: Yes Hx Hypertension: Yes - PULMONARY Hx Respiratory Disorders: No - NEUROLOGICAL Hx Neurological Disorder: No - HEENT Hx HEENT Problems: No - RENAL Hx Chronic Kidney Disease: No - ENDOCRINE/METABOLIC Hx Endocrine Disorders: Yes Hx Diabetes Mellitus Type 2: Yes - HEMATOLOGICAL/ONCOLOGICAL Hx Blood Disorders: Yes Hx AIDS: No Hx Anemia: Yes Hx Human Immunodeficiency Virus (HIV): No - INTEGUMENTARY Hx Dermatological Problems: No - MUSCULOSKELETAL/RHEUMATOLOGICAL Hx Musculoskeletal Disorders: No Hx Arthritis: No Hx Falls: No - GASTROINTESTINAL Hx Gastrointestinal Disorders: No Other/Comment: Liver cirrhosis - GENITOURINARY/GYNECOLOGICAL Hx Genitourinary Disorders: No - PSYCHIATRIC Hx Psychophysiologic Disorder: No Hx Depression: No (denies) Hx Substance Use: No - SURGICAL HISTORY Hx Cholecystectomy: Yes - ANESTHESIA Hx Anesthesia: Yes Hx Anesthesia Reactions: No Hx Malignant Hyperthermia: No Meds Allergies/Adverse Reactions: Allergies Allergy/AdvReac Type Severity Reaction Status Date / Time No Known Allergies Allergy Verified 05/12/17 13:45 - Medications Medications: Current Medications Docusate Sodium (Colace) 100 mg PO BID [facility] Ferrous Sulfate (Feosol) 325 mg PO TID [facility] Furosemide (Lasix) 40 mg PO BID [facility] Gabapentin (Neurontin) 300 mg PO TID [facility] Glyburide (Micronase) 5 mg PO DAILY [facility] Levofloxacin (Levaquin) 500 mg PO QOTHERDAY [facility] Meclizine HCl (Antivert) 25 mg PO DAILY [facility] Metformin HCl (Glucophage) 1,000 mg PO BID [facility] Metoprolol Succinate (Toprol Xl) 50 mg PO DAILY [facility] Spironolactone (Aldactone) 25 mg PO BID [facility] Thiamine HCl (Vitamin B1 Tab) 100 mg PO DAILY [facility] Physical Exam - Constitutional Appears: No Acute Distress - Head Exam Head Exam: ATRAUMATIC - Eye Exam Eye Exam: EOMI - ENT Exam ENT Exam: Mucous Membranes Moist - Neck Exam Neck exam: Positive for: Normal Inspection - Respiratory Exam Respiratory Exam: Clear to Auscultation Bilateral - Cardiovascular Exam Cardiovascular Exam: REGULAR RHYTHM, +S1, +S2 - GI/Abdominal Exam GI & Abdominal Exam: Distended, Normal Bowel Sounds. absent: Tenderness - Extremities Exam Extremities exam: Negative for: tenderness Results - Vital Signs Recent Vital Signs: Last Vital Signs Temp 98.7 F 06/02/17 13:05 Pulse 85 06/02/17 13:05 Resp 18 06/02/17 13:05 BP 125/78 06/02/17 13:05 Pulse Ox 100 06/02/17 13:05 - Labs Result Diagrams: 06/01/17 23:06 06/01/17 23:22 Labs: Laboratory Results - last 24 hr 06/02/17 06/02/17 06/02/17 06:24 11:18 23:35 POC Glucose (mg/dL) 116 H 151 H Blood Type O POSITIVE Antibody Screen Negative BBK History Checked Patient has bt Assessment & Plan (1) Ascites Assessment and Plan: Increased ascites. Patient otherwise well. Parascentesis today. F/u as an outpatient for management ascites with diuretics and possible liver transplant. Status: Acute
--- NOTE | 2017-06-02 14:03 | PCM.SURG1 ---
Surgeon's Initial Post Op Note - Surgeon's Notes Surgeon: Salvador Bravo MD Surgeon Assistant: NONE Type of Anesthesia: Local Pre-Operative Diagnosis: Ascites Operative Findings: US showed a large amount of ascites Post-Operative Diagnosis: Ascites Operation Performed: US guided paracentesis. Specimen/Specimens Removed: 8 liters of straw colored fluid Estimated Blood Loss: EBL {In ML}: 0 Blood Products Given: N/A Drains Used: No Drains Post-Op Condition: Fair Date of Surgery/Procedure: 06/02/17 Time of Surgery/Procedure: 14:00
[2017-06-02 15:15] LABS: BODY FLUID TYPE PERITONEAL/ASCITES
[2017-06-02 15:57] LABS: GLUCOSE,BODY FLUID 107 mg/dL (NONE ESTABLISHED); TOTAL PROTEIN,BODY FLUID < 2.0 g/dL (NONE ESTABLISHED)
[2017-06-02 16:12] LABS: BF GROSS APPEARANCE CLEAR (CLEAR)
[2017-06-02 17:07] LABS: BODY FLUID MONO/MACROPHAGE 10 % (0-0); BODY FLUID TOTAL COUNT 100 (0-0)
[2017-06-03 05:39] LABS: HEMOGLOBIN 8.5 g/dL (12.0-18.0); MEAN CELL VOLUME 81.1 fl (80.0-94.0); MEAN CORPUSCULAR HEMOGLOBIN 25.8 pg (27.0-31.0); MEAN CORPUSCULAR HGB CONC 31.8 g/dL (33.0-37.0); RBC 3.3 Mil/uL (4.40-5.90); RED CELL DISTRIBUTION WIDTH 23.6 % (11.5-14.5); WHITE BLOOD COUNT 8.4 K/uL (4.8-10.8)
[2017-06-03 06:11] LABS: ALB/GLOB RATIO 0.7 (1.0-2.1); ALT/SGPT 33 U/L (21-72); AST/SGOT 42 U/L (17-59); BLOOD UREA NITROGEN 14 mg/dl (9-20); CALCIUM 8.8 mg/dL (8.4-10.2); GFR AFRICAN-AMERICAN > 60; GFR NON-AFRICAN AMERICAN > 60
[2017-06-03 08:47] VITALS: BP 118/80; PULSE 98; RESP 18; TEMP 98.7; O2SAT 100
[2017-06-03] MEDS ORDERED: Metoprolol Succinate 50 mg XL Tab PO SCH (09:00)
[2017-06-04] MEDS ORDERED: levoFLOXacin 500 MG TAB PO SCH (09:00)
--- NOTE | 2017-06-24 11:43 | CP.PCM.PN ---
Subjective - Date & Time of Evaluation Date of Evaluation: 06/03/17 - Subjective Subjective: Patient seen in exam, and interviewed as noted, consults noted and appreciated: gastroenterology and interventional radiology noted and appreciated. Patient's abdominal pain is much improved. Patient is tolerating food very well. ROS: No chest pain or shortness of breath. Objective - Vital Signs/Intake and Output Vital Signs (last 24 hours): Temp Pulse Resp BP Pulse Ox 98.7 F 98 H 18 118/80 100 06/03/17 08:17 06/03/17 09:20 06/03/17 08:17 06/03/17 09:22 06/03/17 08:17 - Labs Labs: 06/03/17 05:24 06/03/17 05:24 PT 15.7 Seconds (9.8-13.1) H 06/01/17 23:22 INR 1.4 (0.9-1.2) H 06/01/17 23:22 APTT 33.4 Seconds (25.6-37.1) 06/01/17 23:22 - Constitutional Appears: No Acute Distress - Respiratory Exam Respiratory Exam: Clear to Ausculation Bilateral (Good bilateral air exchange) - Cardiovascular Exam Cardiovascular Exam: REGULAR RHYTHM, +S1, +S2 - GI/Abdominal Exam GI & Abdominal Exam: Soft. absent: Distended, Rigid, Tenderness, Rebound Additional comments: Shows still significant fat, ascites - Extremities Exam Extremities Exam: absent: Pedal Edema (no actue swelling), Tenderness Additional comments: no acute ischemia - Neurological Exam Additional comments: Essentially unchanged Assessment and Plan - Assessment and Plan (Free Text) Assessment: Overall patient is clinically stable. Plan: Plan as ordered. Case and plan discussed with patient.
== END 2017-06-03 13:14 | disposition home or self-care (01) | DRG 200 ==
LOC: H.ER 21:52 → H.ERHOLD 06-02 01:04 → H.MEDSURG1 06-02 02:15
PROVIDERS: ADMIT Internal Medicine; ATTEND Internal Medicine
PROC: 0W9G3ZX Drainage of Peritoneal Cavity, Percutaneous Approach, Diagnostic (ICD-10-PCS; principal; 2017-06-02)
DX: K70.31 Alcoholic cirrhosis of liver with ascites (principal); E11.22 Type 2 diabetes mellitus with diabetic chronic kidney disease; N18.9 Chronic kidney disease, unspecified; I12.9 Hypertensive chronic kidney disease with stage 1 through stage 4 chronic kidney disease, or unspecified chronic kidney disease; Z87.891 Personal history of nicotine dependence; Z90.49 Acquired absence of other specified parts of digestive tract

== ENCOUNTER 2017-06-16 15:49 | Emergency (ER) | payer OTHER ==
[2017-06-16 16:14] VITALS: BP 135/77; PULSE 92; RESP 18; TEMP 98.3; O2SAT 99
--- NOTE | 2017-06-16 17:15 | ED PDOC ---
HPI: Abdomen Time Seen by Provider: 06/16/17 16:31 Chief Complaint (Nursing): Abdominal Pain Chief Complaint (Provider): I need fluid taken off my abdomen History Per: Patient History/Exam Limitations: no limitations Onset/Duration Of Symptoms: Gradual Current Symptoms Are (Timing): Still Present Location Of Pain/Discomfort: Diffuse Quality Of Discomfort: Pressure Associated Symptoms: denies: Nausea, Vomiting, Diarrhea Exacerbating Factors: None Alleviating Factors: None Last Bowel Movement: Today Additional Complaint(s): 56yo male w alcoholic cirrhosis, prior admission about one month ago for ascites and paracentesis, returns with abdominal distension and request for fluid to be removed from abdomen. Denies fever, vomiting, bloody stools or weakness. States has not followed up with PMD or GI since admission. PMD Meera Past Medical History Reviewed: Historical Data, Nursing Documentation, Vital Signs Vital Signs: Last Vital Signs Temp 98.3 F 06/16/17 16:10 Pulse 92 H 06/16/17 16:10 Resp 18 06/16/17 16:10 BP 135/77 06/16/17 16:10 Pulse Ox 99 06/16/17 17:16 - Medical History PMH: Anemia, HTN Denies: Arthritis, Depression (denies), HIV, Chronic Kidney Disease Other PMH: cirrhosis - Surgical History Surgical History: Cholecystectomy - Family History Family History: States: Unknown Family Hx - Social History Current smoker - smoking cessation education provided: No Alcohol: Other (prior etoh abuse) - Home Medications Home Medications: Ambulatory Orders Medication Instructions Recorded MetFORMIN [glucoPHAGE] 1,000 mg PO BID #60 05/13/17 Spironolactone [Aldactone] 25 mg PO BID #60 05/13/17 glyBURIDE [Micronase] 5 mg PO DAILY #30 05/13/17 Amlodipine Bes/Olmesartan Med 5 mg PO DAILY 06/02/17 [Amlodipine-Olmesartan 5-20 mg] Cholecalciferol (Vitamin D3) 1 g PO BID 06/02/17 [Vitamin D3] Cyclobenzaprine [Cyclobenzaprine 10 mg PO DAILY PRN 06/02/17 HCl] Diclofenac [Diclofenac] 50 mg TOP BID 06/02/17 Ferrous Sulfate [Feosol] 325 mg PO DAILY 06/02/17 Ferrous Sulfate [Feosol] 325 mg PO DAILY 06/02/17 Folic Acid/Multivit-Min/Lutein 1 tab PO DAILY 06/02/17 [[facility] Spectravite Adult Tab Chew] Furosemide [Lasix] 40 mg PO BID 06/02/17 Gabapentin [Neurontin] 300 mg PO TID 06/02/17 Levofloxacin [Levaquin] 500 mg PO QOTHERDAY 06/02/17 Lisinopril [Zestril] 20 mg PO 06/02/17 Magnesium Oxide [Mag-Ox] 400 mg PO BID 06/02/17 Meclizine [Antivert] 25 mg PO DAILY 06/02/17 Metoprolol Succinate [Toprol XL] 50 mg PO DAILY 06/02/17 Omeprazole [Omeprazole] 40 mg PO DAILY 06/02/17 Spironolactone [Aldactone] 50 mg PO DAILY 06/02/17 Thiamine [Vitamin B1 Tab] 100 mg PO DAILY 06/02/17 hydrOXYzine HCl [Atarax] 25 mg PO Q8H PRN #15 tab 06/16/17 - Allergies Allergies/Adverse Reactions: Allergies Allergy/AdvReac Type Severity Reaction Status Date / Time No Known Allergies Allergy Verified 05/12/17 13:45 Review of Systems ROS Statement: Except As Marked, All Systems Reviewed And Found Negative Constitutional: Positive for: Weakness. Negative for: Fever, Chills Respiratory: Negative for: Cough, Shortness of Breath Gastrointestinal: Positive for: Abdominal Pain, Other (distension). Negative for: Nausea, Vomiting Musculoskeletal: Positive for: Leg Pain. Negative for: Shoulder Pain, Back Pain Skin: Negative for: Rash, Lesions, Jaundice Neurological: Negative for: Weakness, Numbness Psych: Negative for: Anxiety Physical Exam - Reviewed Nursing Documentation Reviewed: Yes Vital Signs Reviewed: Yes - Physical Exam Appears: Positive for: Well Head Exam: Positive for: ATRAUMATIC, NORMAL INSPECTION, NORMOCEPHALIC Skin: Positive for: Normal Color, Warm, DRY Eye Exam: Positive for: EOMI, PERRL ENT: Positive for: Normal ENT Inspection Neck: Positive for: Normal, Painless ROM Cardiovascular/Chest: Positive for: Regular Rate, Rhythm Respiratory: Positive for: CNT, Normal Breath Sounds Gastrointestinal/Abdominal: Positive for: Bowel Sounds, Soft, Distended (ascites , soft), Asicites. Negative for: Tenderness Back: Positive for: Normal Inspection Extremity: Positive for: Swelling (b/l LE edema 2+ pitting) Neurologic/Psych: Positive for: Alert, Oriented. Negative for: Motor/Sensory Deficits - ECG O2 Sat by Pulse Oximetry: 99 Medical Decision Making Medical Decision Making: Pt requires semi-elective paracentesis. IR not available for non-life threatening case currently afterhours. Pt offered hospital admission but refused and wanted paracentesis now. Explained procedure unavailable and discussed w radiology for scheduled procedure tomorrow. At that time I explained we need bloodwork tonight to assure platelets and INR are acceptable range, but he refused and walked out of ED. Vitals stable. Decision making was intact and patient understood risk of leaving hospital prior to treatment complete. Disposition - Clinical Impression Clinical Impression: Ascites - Patient ED Disposition Is Patient to be Admitted: No Counseled Patient/Family Regarding: Diagnosis, Need For Followup - Disposition Referrals: Amadeo Solis MD [Staff Provider] - Disposition: Left W/O Treatment Disposition Time: 17:25 Condition: STABLE Additional Instructions: You were offered hospital observation for the night to obtain paracentesis ( fluid removed from abdomen) in the morning, but you prefer to return to hospital tomorrow. Prescriptions: hydrOXYzine HCl [Atarax] 25 mg PO Q8H PRN #15 tab PRN Reason: Itching / Pruritus Instructions: Ascites (ED) Forms: [facility] (Sinhala)
== END 2017-06-16 17:46 | disposition left against medical advice (07) ==
LOC: H.ER 15:49
DX: R18.8 Other ascites (principal); I12.9 Hypertensive chronic kidney disease with stage 1 through stage 4 chronic kidney disease, or unspecified chronic kidney disease; K74.60 Unspecified cirrhosis of liver; N18.9 Chronic kidney disease, unspecified; Z79.84 Long term (current) use of oral hypoglycemic drugs

== ENCOUNTER 2017-06-17 11:05 | Observation (INO) | payer OTHER ==
--- NOTE | 2017-06-17 11:37 | ED PDOC ---
HPI: Abdomen Time Seen by Provider: 06/17/17 11:18 Chief Complaint (Nursing): Abdominal Pain Chief Complaint (Provider): Abdominal pain History Per: Patient Additional Complaint(s): 56 yo M w/ medical history of Liver cirrhosis 2ndary to ETOH, DM, HTN presents to ED via EMS due to abdominal pain/distention. Patient states since last admission (06/02), pain/distention has returned. Patient states taking certain medications though not all. Patient has not been seen by GI since last admission. BM today, daily 1-2x. No melena/brbpr noted. Patient denies fever, chills, nausea, vomiting, headache, chest pain, dizziness, lightheadedness, or sob. Patient states last etoh intake ~ 9 months ago. Patient states bilateral lower leg swelling present though has been improving. Urinating normally. Pt seen and evaluated in the ED yesterday, was unable to stay overnight for IR, was advised to return today. Past Medical History Reviewed: Historical Data, Nursing Documentation, Vital Signs Vital Signs: Last Vital Signs Temp 97.8 F 06/17/17 14:00 Pulse 72 06/17/17 14:00 Resp 18 06/17/17 14:00 BP 122/77 06/17/17 14:00 Pulse Ox 99 06/17/17 14:00 - Medical History PMH: Anemia, HTN Denies: Arthritis, Depression (denies), HIV, Chronic Kidney Disease - Surgical History Surgical History: Cholecystectomy - Family History Family History: States: Unknown Family Hx - Living Arrangements Living Arrangements: With Family - Social History Alcohol: Other (former drinker, last was 9 months ago) - Home Medications Home Medications: Ambulatory Orders Medication Instructions Recorded MetFORMIN [glucoPHAGE] 1,000 mg PO BID #60 05/13/17 Spironolactone [Aldactone] 25 mg PO BID #60 05/13/17 glyBURIDE [Micronase] 5 mg PO DAILY #30 05/13/17 Amlodipine Bes/Olmesartan Med 5 mg PO DAILY 06/02/17 [Amlodipine-Olmesartan 5-20 mg] Cholecalciferol (Vitamin D3) 1 g PO BID 06/02/17 [Vitamin D3] Cyclobenzaprine [Cyclobenzaprine 10 mg PO DAILY PRN 06/02/17 HCl] Diclofenac [Diclofenac] 50 mg TOP BID 06/02/17 Ferrous Sulfate [Feosol] 325 mg PO DAILY 06/02/17 Ferrous Sulfate [Feosol] 325 mg PO DAILY 06/02/17 Folic Acid/Multivit-Min/Lutein 1 tab PO DAILY 06/02/17 [[facility] Spectravite Adult Tab Chew] Furosemide [Lasix] 40 mg PO BID 06/02/17 Gabapentin [Neurontin] 300 mg PO TID 06/02/17 Levofloxacin [Levaquin] 500 mg PO QOTHERDAY 06/02/17 Lisinopril [Zestril] 20 mg PO 06/02/17 Magnesium Oxide [Mag-Ox] 400 mg PO BID 06/02/17 Meclizine [Antivert] 25 mg PO DAILY 06/02/17 Metoprolol Succinate [Toprol XL] 50 mg PO DAILY 06/02/17 Omeprazole [Omeprazole] 40 mg PO DAILY 06/02/17 Spironolactone [Aldactone] 50 mg PO DAILY 06/02/17 Thiamine [Vitamin B1 Tab] 100 mg PO DAILY 06/02/17 hydrOXYzine HCl [Atarax] 25 mg PO Q8H PRN #15 tab 06/16/17 - Allergies Allergies/Adverse Reactions: Allergies Allergy/AdvReac Type Severity Reaction Status Date / Time No Known Allergies Allergy Verified 06/17/17 11:34 Review of Systems ROS Statement: Except As Marked, All Systems Reviewed And Found Negative Gastrointestinal: Positive for: Abdominal Pain Physical Exam - Reviewed Nursing Documentation Reviewed: Yes Vital Signs Reviewed: Yes - Physical Exam Appears: Positive for: Well, Non-toxic, No Acute Distress Head Exam: Positive for: ATRAUMATIC, NORMAL INSPECTION, NORMOCEPHALIC Skin: Positive for: Normal Color, Warm, DRY Eye Exam: Positive for: EOMI, Normal appearance, PERRL ENT: Positive for: Normal ENT Inspection Neck: Positive for: Normal, Painless ROM Cardiovascular/Chest: Positive for: Regular Rate, Rhythm Respiratory: Positive for: CNT, Normal Breath Sounds Gastrointestinal/Abdominal: Positive for: Bowel Sounds, Soft, Tenderness, Distended, Asicites Back: Positive for: Normal Inspection Extremity: Positive for: Normal ROM Neurologic/Psych: Positive for: Alert, Oriented - Laboratory Results Result Diagrams: 06/17/17 11:45 06/17/17 11:45 - ECG O2 Sat by Pulse Oximetry: 100 Medical Decision Making Medical Decision Making: Diagnostics ordered. Pt sent to IR, see procedure note. Upon return to ED, Pt reports feeling greatly improved. Asking to leave ED Disposition - Clinical Impression Clinical Impression: Alcoholic cirrhosis of liver with ascites, Abdominal discomfort - Patient ED Disposition Is Patient to be Admitted: No - Disposition Disposition: Routine/Home Disposition Time: 14:56 Condition: STABLE
[2017-06-17 12:12] LABS: BASO # 0.1 K/uL (0.0-0.2); BASO % 0.8 % (0.0-2.0); EOS # 0.1 K/uL (0.0-0.7); EOS % 1.7 % (0.0-4.0); HEMOGLOBIN 8.8 g/dL (12.0-18.0); LYMPH % 13.9 % (20.0-40.0); MEAN CELL VOLUME 83.5 fl (80.0-94.0); MEAN CORPUSCULAR HEMOGLOBIN 26.5 pg (27.0-31.0); MEAN CORPUSCULAR HGB CONC 31.7 g/dL (33.0-37.0); MEAN PLATELET VOLUME 8.5 fl (7.2-11.7); MONO # 0.7 K/uL (0.0-0.8); MONO % 10.3 % (0.0-10.0); NEUT % 73.3 % (50.0-75.0); NRBC % 0.1 % (0.0-0.0); RBC 3.32 Mil/uL (4.40-5.90); RED CELL DISTRIBUTION WIDTH 23.1 % (11.5-14.5); WHITE BLOOD COUNT 6.8 K/uL (4.8-10.8)
[2017-06-17 12:19] LABS: URINE AMORPHOUS SEDIMENT RARE /ul (<OCC); URINE BILIRUBIN NEGATIVE (NEGATIVE); URINE BLOOD NEGATIVE (NEGATIVE); URINE CLARITY CLOUDY (Clear); URINE COLOR YELLOW (YELLOW); URINE GLUCOSE (UA) NEG (Normal); URINE LEUKOCYTE ESTERASE NEG Leu/uL (Negative); URINE NITRATE NEGATIVE (NEGATIVE); URINE PROTEIN NEGATIVE (NEGATIVE)
[2017-06-17 12:29] LABS: INR 1.3 (0.9-1.2); PARTIAL THROMBOPLASTIN TIME 33.5 Seconds (25.6-37.1); PROTHROMBIN TIME 15.1 Seconds (9.8-13.1)
[2017-06-17 12:32] LABS: ALB/GLOB RATIO 0.7 (1.0-2.1); ALBUMIN 3.1 g/dL (3.5-5.0); ALT/SGPT 56 U/L (21-72); AMYLASE 172 U/L (30-110); AST/SGOT 60 U/L (17-59); BLOOD UREA NITROGEN 9 mg/dl (9-20); CALCIUM 9.2 mg/dL (8.4-10.2); GFR AFRICAN-AMERICAN > 60; GFR NON-AFRICAN AMERICAN > 60; LIPASE 471 U/L (23-300)
[2017-06-17] MEDS ORDERED: Lidocaine 1% Inj (20ml) ONE (13:13)
--- NOTE | 2017-06-17 13:57 | PCM.SURG1 ---
Surgeon's Initial Post Op Note - Surgeon's Notes Surgeon: Salvador Bravo md [employer] Helper Machine: None Type of Anesthesia: Local Pre-Operative Diagnosis: Ascites, cirrhosis Operative Findings: US showed a moderate amount of ascites Post-Operative Diagnosis: Ascites, cirrhosis Operation Performed: US guided paracentesis. Specimen/Specimens Removed: 5.5 liters of straw colored fluid Estimated Blood Loss: EBL {In ML}: 0 Blood Products Given: N/A Drains Used: No Drains Post-Op Condition: Fair Date of Surgery/Procedure: 06/17/17 Time of Surgery/Procedure: 12:55
[2017-06-17 14:01] VITALS: RESP 18; TEMP 97.8
[2017-06-17 14:57] VITALS: BP 128/79; PULSE 77; O2SAT 100
--- NOTE | 2017-06-17 19:03 | CARD ---
APPROVED REPORT EKG Measurement Heart [id number] <Conclusion> Normal sinus rhythm Low voltage QRS Borderline ECG
--- NOTE | 2017-06-18 15:01 | US ---
Date of Procedure: 06/17/2017 PROCEDURE: Ultrasound-guided paracentesis, CPT 85043 Medications: 7 cc 1% Lidocaine HISTORY: Ascites, abdominal pain, cirrhosis TECHNIQUE: Following informed consent , the patient was placed supine on the stretcher and the site was marked. A limited abdominal ultrasound was performed that showed a large amount of intra-abdominal fluid. Procedural time out was called and the Pt's abdomen was marked and prepped and draped in the usual sterile fashion. Ultrasound-guided large volume paracentesis performed. A total of 5 liters of straw colored fluid was removed without complication. IMPRESSION: Ultrasound-guided large volume paracentesis.
== END 2017-06-17 14:55 | disposition home or self-care (01) ==
LOC: H.ER 11:05 → H.EROBSV 12:43
PROVIDERS: ADMIT Emergency Medicine; ATTEND Emergency Medicine
DX: K70.31 Alcoholic cirrhosis of liver with ascites (principal); I12.9 Hypertensive chronic kidney disease with stage 1 through stage 4 chronic kidney disease, or unspecified chronic kidney disease; Z21 Asymptomatic human immunodeficiency virus [HIV] infection status; N18.9 Chronic kidney disease, unspecified; E11.22 Type 2 diabetes mellitus with diabetic chronic kidney disease; Z79.899 Other long term (current) drug therapy